=== PATIENT | male | born 1940 | race Asian ===

== ENCOUNTER 2016-07-06 22:30 | Emergency (ER) | payer OTHER ==
[~2016-07-06] VITALS: Wt 73.0 kg
[~2016-07-06 22:30] MED LIST: ATOR10TA65 PO; COLE1TAB2 PO; DOCU-144 PO; FLUO40CA PO; GLIP-95 PO; NIFE30TA43 PO; NOVO7030 SC; POLY17PO6 PO; TRAM50TA2 PO
--- NOTE | 2016-07-07 01:20 | RADRPT ---
PROCEDURE: Portable chest x-ray. CLINICAL INDICATION: Cough. TECHNIQUE: Portable AP view of the chest. COMPARISON: 10/20/2014. FINDINGS: Stable left basilar opacity probably represents epicardial fat or atelectasis. No pulmonary edema o r conolidation is identified. The cardiac silhouette is magnified. No pleural effusion is seen. T here is no pneumothorax. IMPRESSION: 1. No evidence of acute cardiopulmonary disease. RPTAT: HTAR .Francisco Lerner MD, MD Date Time Electronically viewed and signed by .Francisco Lerner MD, MD on 07/07/2016 01:20 .R/
[2016-07-07] MEDS ORDERED: BENZ100C70 PO (01:32)
[2016-07-07] MEDS ORDERED: D-ME473S18 PO (01:33)
--- NOTE | 2016-07-07 01:55 | ERD ---
ER Documentation Chief Complaint Date/Time DATE: 07/07/16 TIME: 01:54 Chief Complaint DRY IRRITATING COUGH SINCE TODAY. NO FEVERS. MILD SORE THROAT. NO EAR PAIN HPI Patient is a 75-year-old male with past medical history of his hypertension, diabetes, hyperlipidemia, SBO presents to the emergency department with a dry cough which started earlier today. Patient has been taking Delsym for symptoms which does temporarily relieve his cough however it continues. Patient states over the last week there has been construction in his house. Patient denies any chest pain, shortness of breath, diaphoresis, arm pain, jaw pain or loss of consciousness. Patient denies any fevers, chills, nausea, vomiting, abdominal pain, ear pain, rhinorrhea. Patient states he does have some mild throat irritation however he denies any trismus, drooling, hyperextension of his neck. Patient denies any sick contacts. No recent travel. ROS All systems reviewed and are negative except as per history of present illness. Medications Home Meds Active Scripts Dextromethorphan Hb-Promethazine Hcl (Promethazine DM Syrup) 473 Ml Syrup, 5 ML PO Q6H Y for COUGH, #4 OZ Prov:JESUSITA WILLIS PA-C 07/07/16 Benzonatate* (Tessalon Perle*) 100 Mg Capsule, 100 MG PO Q8H Y for COUGH, #30 CAP Prov:JESUSITA WILLIS PA-C 07/07/16 Polyethylene Glycol* (Miralax*) 17 Gm Powd.pack, 17 GM PO DAILY Y for CONSTIPATION, #30 PACKET Prov:DIVYA SPAULDING MD 01/25/16 Docusate Sodium* (Colace*) 100 Mg Capsule, 100 MG PO BID, #60 CAP Prov:DIVYA SPAULDING MD 01/25/16 Reported Medications Glipizide* (Glipizide*) 10 Mg Tablet, 10 MG PO DAILY, TAB 01/24/16 Colestipol HCl (Colestipol HCl) 1 Gm Tablet, 1 GM PO, TAB 01/24/16 Insulin Isophan/Regular (Humulin 70/30) 100 Units/Ml Susp, 10 UNIT SC AC BREAKFAST BEDTIME, EA 01/24/16 Atorvastatin Calcium (Atorvastatin Calcium) 10 Mg Tablet, 10 MG PO QHS, #30 TAB 10/25/15 Tramadol HCl (Tramadol HCl) 50 Mg Tab, 50 MG PO Q6H Y for PAIN, TAB 10/20/14 Nifedipine* (Adalat CC*) 30 Mg Tablet.sa, 30 MG PO DAILY, TAB.SA 10/20/14 Fluoxetine Hcl* (Fluoxetine Hcl*) 40 Mg Capsule, 40 MG PO DAILY, CAP 10/20/14 Allergies Allergies: Coded Allergies: Sulfa (Sulfonamide Antibiotics) (Unverified Allergy, Mild, 01/24/16) Uncoded Allergies: SULFA (Allergy, Mild, RASH, 10/25/15) PMhx/Soc History of Surgery: Yes (PROSTECTOMY) Anesthesia Reaction: No Hx Neurological Disorder: No Hx Respiratory Disorders: No Hx Cardiac Disorders: Yes (HTN, DM, CHOLESTEROL) Hx Psychiatric Problems: No Hx Miscellaneous Medical Probl: Yes (prostate ca, sbo) Hx Alcohol Use: No Hx Substance Use: No Hx Tobacco Use: No Smoking Status: Never smoker Physical Exam Vitals Vital Signs Date Time Temp Pulse Resp B/P Pulse Ox O2 Delivery O2 Flow Rate FiO2 07/06/16 22:37 98.8 75 21 131/67 98 Physical Exam GENERAL: Well-developed, well-nourished male. Appears in no acute distress. Speaking in full sentences HEAD: Normocephalic, atraumatic. No deformities or ecchymosis. EYE: Pupils equal, round, and reactive to light. EOMs intact. No conjunctival erythema. No eye discharge. ENT: External ear without any masses or tenderness. Auditory canals clear bilaterally. TM visualized bilaterally, non-erythematous, non-bulging. Nasal mucosa pink with no discharge. Oropharynx is pink without any tonsillar swelling , erythema or exudates. No uvula deviation. No kissing tonsils. NECK: Supple. No meningismus. Normal ROM of the neck. No hyperextension of the neck. LUNG: Clear to auscultation bilaterally. No rhonchi, wheezing, rales or coarse breath sounds. HEART: Regular rate and rhythm. No murmurs, rubs or gallops. BACK: No midline tenderness. EXTREMITES: Equal pulses bilaterally. No peripheral clubbing, cyanosis or edema. No unilateral leg swelling. NEUROLOGIC: Alert and oriented to person, place and time. Moving all four extremities. 5/5 strength in all extremities. Normal speech. Steady gait. SKIN: Normal color. Warm and dry. No rashes or lesions. Procedures/MDM ED COURSE: The patient was stable throughout ED course. I kept the patient and/or family informed of laboratory and diagnostic imaging results throughout the ED course. DIAGNOSTIC IMAGING: Read by radiologist. DIAGNOSTIC IMAGING REPORT Patient: TIRSO PANDYA : 1940 Age: 75 Sex: M MR #: [id number] DOS: 07/07/16 0030 Ordering MD: JESUSITA WILLIS PA-C Location: E Room/Bed: PROCEDURE: Portable chest x-ray. CLINICAL INDICATION: Cough. TECHNIQUE: Portable AP view of the chest. COMPARISON: 10/20/2014. FINDINGS: Stable left basilar opacity probably represents epicardial fat or atelectasis. No pulmonary edema or conolidation is identified. The cardiac silhouette is magnified. No pleural effusion is seen. There is no pneumothorax. IMPRESSION: 1. No evidence of acute cardiopulmonary disease. RPTAT: HTAR .Francisco Lerner MD, MD Date Time Electronically viewed and signed by .Francisco Lerner MD, MD on 07/07/2016 01:20 .R/ CC: JESUSITA WLILIS PA-C MEDICAL DECISION MAKING: This is a 75-year-old male who presents to the emergency department with a dry cough which started earlier today. Patient states they are doing construction his house. Patient states that he also has some mild throat irritation. Vital signs were reviewed. Patient was afebrile. Patient was not hypoxic. ENT exam was normal. Lung exam was normal. Chest x-ray was unremarkable. Given these findings, the patient's presentation is most consistent with viral URI. I have a much lower clinical concern for bacterial infections including pneumonia, meningitis, sinusitis, otitis externa, acute otitis media, strep pharyngitis, epiglottitis or peritonsillar abscess. PRESCRIPTIONS: Promethazine cough syrup, Tessalon Perles DISCHARGE: At this time, patient is stable for discharge and outpatient management. Supportive therapies such as OTC throat lozenges, salt water gurgles, popsicles and jello discussed. I have instructed the patient to follow-up with his/her primary care physician in 1-2 days. I have instructed the patient to promptly return to the ER for any new or worsening symptoms including increased pain, swelling, fever, nausea, vomiting, weakness or difficulty breathing. The patient and/or family expressed understanding of and agreement with this plan. All questions were answered. Home care instructions were provided. Departure Diagnosis: Primary Impression: Viral URI Condition: Stable Patient Instructions: Uri, Viral, No Abx (Adult) Additional Instructions: Call your primary care doctor TOMORROW for an appointment during the next 1-2 days.See the doctor sooner or return here if your condition worsens before your appointment time. JESUSITA WILLIS PA-C Jul 07, 2016 01:55
== END 2016-07-07 04:49 | disposition home or self-care (01) ==
LOC: FTE 22:30
DX: J06.9 Acute upper respiratory infection, unspecified (principal); I10 Essential (primary) hypertension; E11.9 Type 2 diabetes mellitus without complications; Z79.4 Long term (current) use of insulin; Z79.84 Long term (current) use of oral hypoglycemic drugs; Z85.46 Personal history of malignant neoplasm of prostate
CPT/HCPCS: 71010

== ENCOUNTER 2017-01-28 04:11 | Inpatient (IN) | payer OTHER ==
[~2017-01-28] VITALS: Ht 167.6 cm; Wt 75.0 kg
[~2017-01-28 04:11] MED LIST changes: +BENZ100C70 PO; +D-ME473S18 PO
[2017-01-28] MEDS ORDERED: ONDANSETRON 4 MG INJ IV STA (04:20)
[2017-01-28] MEDS ORDERED: morphine 4 MG/ML VIAL IV STA (04:20)
[2017-01-28] MEDS ORDERED: FAMOTIDINE 20 MG INJ IV STA (04:20)
[2017-01-28] MEDS ORDERED: SOD CHLORIDE 0.9% 1,000 ML IV STA (04:20)
[2017-01-28 04:39] LABS: BASOPHIL # 0.1 10^3/ul (0.0-0.1); BASOPHILS % 0.3 % (0.0-2.0); EOSINOPHILS # 0.1 10^3/ul (0.0-0.5); EOSINOPHILS % 0.8 % (0.0-7.0); HEMATOCRIT 38.9 % (42.0-52.0); HEMOGLOBIN 13.6 g/dl (14.0-18.0); LYMPHOCYTES # 4.3 10^3/ul (0.8-2.9); LYMPHOCYTES % 25.1 % (15.0-51.0); MEAN CORPUSCULAR HEMOGLOBIN 29.6 pg (29.0-33.0); MEAN CORPUSCULAR VOLUME 84.6 fl (82.0-101.0); MEAN PLATELET VOLUME 10.3 fl (7.4-10.4); MONOCYTE # 0.8 10^3/ul (0.3-0.9); MONOCYTES % 4.7 % (0.0-11.0); NEUTROPHIL # 11.9 10^3/ul (1.6-7.5); NEUTROPHILS % 68.8 % (39.0-77.0); PLATELET COUNT 190 10^3/UL (140-415); RED CELL DISTRIBUTION WIDTH 13.2 % (11.5-14.5); WHITE BLOOD COUNT 17.3 10^3/ul (4.8-10.8)
[2017-01-28 04:56] LABS: ALBUMIN 4.7 g/dl (3.3-4.9); ALBUMIN/GLOBULIN RATIO 1.34; BILIRUBIN,INDIRECT 0.6 mg/dl (0-1.1); BILIRUBIN,TOTAL 0.6 mg/dl (0.2-1.3); CREATININE 1.24 mg/dl (0.61-1.24); POTASSIUM 4.3 mmol/L (3.5-5.1); TOTAL PROTEIN 8.2 g/dl (6.1-8.1)
[2017-01-28] MEDS ORDERED: morphine 10 MG INJ IV ONE (05:00)
--- NOTE | 2017-01-28 05:15 | RADRPT ---
PROCEDURE: CT ABDOMEN/PELVIS WITHOUT CONTRAST CLINICAL INDICATION: 76-year-old male with abdominal pain. TECHNIQUE: The study was performed utilizing a [employer] VCT 64-slice CT scanner. Direct axia l sections were obtained through the abdomen and pelvis without the use of intravenous contrast mate rial. Sagittal and coronal reformations were obtained. One or more of the following dose reduction t echniques were utilized: automated exposure control, adjustment of the mA and/or kV according to pat ient's size and/or the use of iterative reconstruction technique. The images were reviewed on a PAC S workstation. CTD/vol = 13.6 mGy; Total Exam DLP = 820.1 mGy-cm. COMPARISON: CT abdomen/pelvis January 24, 2016. FINDINGS: There is trace bibasilar subsegmental atelectasis. There is no evidence for significant pleural eff usion. The liver has a normal size and contour without focal areas of abnormal density. No intrahep atic nor extrahepatic biliary ductal dilatation is seen. The gallbladder contains multiple calcified dependent gallstones extending to the neck region. In addition, there is diffuse scattered peripher al gallbladder wall calcifications. There is no significant pericholecystic fluid. The pancreas is w ithout areas of abnormal attenuation. The spleen is identified and has a normal size without abnorm al density. The adrenal glands are unremarkable. The kidneys are without abnormal density. No hydrou reteronephrosis nor nephroureterolithiasis is evident. The urinary bladder contains urine. There is a small hiatal hernia present. There are persistently moderately dilated loops of small bowel with t ransition point within the lower mid abdomen consistent with a small bowel obstruction. This is similar to the patient's prior examination. Fecalization is noted within the small bowel in the righ t upper quadrant. The appendix is visualized and is without abnormal thickening or surrounding infla mmatory reaction. Again noted are multiple clips within the pelvic region from prior cystectomy. The re is a neobladder again identified. There are small diverticula within the sigmoid colon without muhammad rrounding inflammatory reaction. The aortoiliac vessels are without aneurysmal dilatation. Prominent degenerative changes are seen within the lower lumbar spine. IMPRESSION: 1. Moderately dilated loops of small bowel with transition point within the mid lower abdomen consi stent with recurrent small bowel obstruction. 2. Status post cystectomy with neobladder. 3. Mild sigmoid diverticulosis. 4. No CT evidence for appendicitis. 5. Small hiatal hernia. 6. Cholelithiasis with gallbladder wall calcifications. 7. Degenerative changes within the spine. .Emiliano Tapia MD, Date Time Electronically viewed and signed by .Emiliano Tapia MD, on 01/28/2017 05:15 .M/
[2017-01-28] MEDS ORDERED: SOD CHLORIDE 0.9% 1,000 ML IV SCH (05:39)
--- NOTE | 2017-01-28 05:43 | ERA ---
ER Documentation Chief Complaint Date/Time DATE: 01/28/17 TIME: 05:40 Chief Complaint ap tonight. +distension. hx bowel obstruction. +vomiting. HPI This is a 76-year-old male who presents to the emergency room for evaluation of abdominal pain, nausea and vomiting. The patient does state that he has had this in the past and was diagnosed with small bowel obstruction. The patient states that he has had surgery on his bladder previously. He states that his bowel obstruction has resolved with "the tube". The patient localizes the pain to the total portion of his abdomen and describes as an achy pain. The patient denies any fevers or chills or diarrhea associated with this. He came to the ER today for evaluation. ROS All systems reviewed and are negative except as per history of present illness. Medications Home Meds Active Scripts Dextromethorphan Hb-Promethazine Hcl (Promethazine DM Syrup) 473 Ml Syrup, 5 ML PO Q6H Y for COUGH, #4 OZ Prov:JESUSITA WILLIS PA-C 07/07/16 Benzonatate* (Tessalon Perle*) 100 Mg Capsule, 100 MG PO Q8H Y for COUGH, #30 CAP Prov:JESUSITA WILLIS PA-C 07/07/16 Polyethylene Glycol* (Miralax*) 17 Gm Powd.pack, 17 GM PO DAILY Y for CONSTIPATION, #30 PACKET Prov:DIVYA SPAULDING MD 01/25/16 Docusate Sodium* (Colace*) 100 Mg Capsule, 100 MG PO BID, #60 CAP Prov:DIVYA SPAULDING MD 01/25/16 Reported Medications Glipizide* (Glipizide*) 10 Mg Tablet, 10 MG PO DAILY, TAB 01/24/16 Colestipol HCl (Colestipol HCl) 1 Gm Tablet, 1 GM PO, TAB 01/24/16 Insulin Isophan/Regular (Humulin 70/30) 100 Units/Ml Susp, 10 UNIT SC AC BREAKFAST BEDTIME, EA 01/24/16 Atorvastatin Calcium (Atorvastatin Calcium) 10 Mg Tablet, 10 MG PO QHS, #30 TAB 10/25/15 Tramadol HCl (Tramadol HCl) 50 Mg Tab, 50 MG PO Q6H Y for PAIN, TAB 10/20/14 Nifedipine* (Adalat CC*) 30 Mg Tablet.sa, 30 MG PO DAILY, TAB.SA 10/20/14 Fluoxetine Hcl* (Fluoxetine Hcl*) 40 Mg Capsule, 40 MG PO DAILY, CAP 10/20/14 Allergies Allergies: Coded Allergies: Sulfa (Sulfonamide Antibiotics) (Unverified Allergy, Mild, 01/28/17) PMhx/Soc History of Surgery: Yes (prostate surgery with bladder resection) Anesthesia Reaction: No Hx Neurological Disorder: No Hx Respiratory Disorders: No Hx Psychiatric Problems: No Hx Miscellaneous Medical Probl: Yes (Prostate CA, DM) Hx Alcohol Use: No Hx Substance Use: No Hx Tobacco Use: No Smoking Status: Never smoker Physical Exam Vitals Vital Signs Date Time Temp Pulse Resp B/P Pulse Ox O2 Delivery O2 Flow Rate FiO2 01/28/17 04:14 97.4 56 26 137/63 98 Physical Exam INITIAL VITAL SIGNS: Reviewed by me GENERAL: The patient is well developed, moderate distress actively vomiting HEENT: Pupils equal, round, and reactive to light. EOMI. There is no scleral icterus. NECK: C-spine is soft and supple, there is no meningismus. There is no cervical lymphadenopathy. LUNGS: Clear to auscultation bilaterally. There are no rales, wheezes or rhonchi. HEART: Regular rate and rhythm, no murmurs, clicks, rubs or gallops. ABDOMEN: His abdomen with hyperactive bowel sounds auscultated in the left and right upper quadrant, positive guarding and rebound tenderness EXTREMITIES: There is no peripheral cyanosis or edema. No focal swelling or erythema. NEUROLOGICAL: The patient moves all four extremities with 5/5 strength. Cranial nerves II - XII are intact. Normal gait. Alert and oriented SKIN: There is no apparent rash or petechiae. HEME/LYMPHATIC: There is no evidence of excessive bruising or lymphedema. PSYCHIATRIC: The patient does not appear anxious or depressed. Result Diagram: 01/28/1741901/28/17419 Results 24 hrs Laboratory Tests Test 01/28/17 04:20 White Blood Count 17.310^3/ul Red Blood Count 4.6010^6/ul Hemoglobin 13.6g/dl Hematocrit 38.9% Mean Corpuscular Volume 84.6fl Mean Corpuscular Hemoglobin 29.6pg Mean Corpuscular Hemoglobin Concent 35.0g/dl Red Cell Distribution Width 13.2% Platelet Count 65192^3/UL Mean Platelet Volume 10.3fl Neutrophils % 68.8% Lymphocytes % 25.1% Monocytes % 4.7% Eosinophils % 0.8% Basophils % 0.3% Nucleated Red Blood Cells % 0.0/100WBC Neutrophils # 11.910^3/ul Lymphocytes # 4.310^3/ul Monocytes # 0.810^3/ul Eosinophils # 0.110^3/ul Basophils # 0.110^3/ul Nucleated Red Blood Cells # 0.010^3/ul Sodium Level 141mmol/L Potassium Level 4.3mmol/L Chloride Level 103mmol/L Carbon Dioxide Level 25mmol/L Anion Gap 17 Blood Urea Nitrogen 17mg/dl Creatinine 1.24mg/dl Glucose Level 194mg/dl Calcium Level 10.0mg/dl Total Bilirubin 0.6mg/dl Direct Bilirubin 0.00mg/dl Indirect Bilirubin 0.6mg/dl Aspartate Amino Transf (AST/SGOT) 32IU/L Alanine Aminotransferase (ALT/SGPT) 48IU/L Alkaline Phosphatase 54IU/L Total Protein 8.2g/dl Albumin 4.7g/dl Globulin 3.50g/dl Albumin/Globulin Ratio 1.34 Lipase 161U/L Current Medications Medications (Trade) Dose Ordered Sig/Daniela Route PRN Reason Start Time Stop Time Status Last Admin Dose Admin Sodium Chloride (NS) 1,000 ml @ 1,000 mls/hr Q1H STAT IV 01/28/17 04:20 01/28/17 05:19 DC 01/28/17 04:33 Morphine Sulfate (morphine) 4 mg ONCE STAT IV 01/28/17 04:20 01/28/17 04:21 DC 01/28/17 04:36 Ondansetron HCl (Zofran Inj) 4 mg ONCE STAT IV 01/28/17 04:20 01/28/17 04:21 DC 01/28/17 04:36 Famotidine (Pepcid Iv) 20 mg ONCE STAT IV 01/28/17 04:20 01/28/17 04:21 DC 01/28/17 04:33 Morphine Sulfate 6 mg 6 mg ONCE ONCE IV 01/28/17 05:00 01/28/17 05:01 DC 01/28/17 04:53 Sodium Chloride (NS) 1,000 ml @ 80 mls/hr [id number] IV 01/28/17 05:39 01/28/17 18:08 Ondansetron HCl (Zofran Inj) 4 mg BRIDGE ORDER PRN IV NAUSEA AND/OR VOMITING 01/28/17 06:00 01/29/17 05:59 Acetaminophen (Tylenol Tab) 650 mg ER BRIDGE PRN PO MILD PAIN/FEVER 01/28/17 06:00 01/29/17 05:59 Procedures/MDM CT abdomen pelvis without:: 1. Moderately dilated loops of small bowel with transition point within the mid lower abdomen consistent with recurrent small bowel obstruction. 2. Status post cystectomy with neobladder. 3. Mild sigmoid diverticulosis. 4. No CT evidence for appendicitis. 5. Small hiatal hernia. 6. Cholelithiasis with gallbladder wall calcifications. 7. Degenerative changes within the spine. This 76-year-old male presents to the ER for evaluation of abdominal pain. When I evaluated this patient he was in a moderate amount of distress and did have peritoneal signs. The patient was slightly distended with hyperactive bowel sounds. The patient was given morphine and Zofran with some mild relief of his pain. The patient was given a second dose of morphine and a CAT scan was obtained which does confirm my suspicion of reoccurring small bowel obstruction. Nasogastric tube was placed in this patient tolerated nasogastric tube placement well. The patient's pain has decreased significantly since placement of the NG tube. The patient was seen last year for the same by Dr. Cortez, and I have contacted him however he is deferred consultation to our panel physician. I have contacted her panel surgeon Dr. Salcedo and he is in agreement to evaluate this patient. The patient will be admitted to our panel physician Dr. antonio Critical Care: Excluding all billable procedures Time: 33 minutes Treatments/Evaluations: Close monitoring and treatment of unstable vital signs, cardiorespiratory, and neurologic status, while maintaining tight balance of fluid, respiratory, and cardiac interventions. Departure Diagnosis: Primary Impression: Small bowel obstruction Additional Impressions: Abdominal pain Nausea and vomiting Condition: FINA Olson DO Jan 28, 2017 05:43
[2017-01-28] MEDS ORDERED: ONDANSETRON 4 MG INJ IV PRN ×2 (06:00→06:30)
[2017-01-28] MEDS ORDERED: ACETAMINOPHEN 325 MG TAB PO PRN (06:00)
[2017-01-28] MEDS ORDERED: INSU100I27 SQ (06:04)
[2017-01-28] MEDS ORDERED: ALBUTEROL/IPRATROPIUM (NEB) 3 ML AMP HHN PRN (06:30)
[2017-01-28] MEDS ORDERED: GLUCOSE GEL 15 GRAM TUBE PO PRN ×2 (06:30)
[2017-01-28] MEDS ORDERED: DEXTROSE 50% 50 ML SYRINGE IV PRN ×2 (06:30)
[2017-01-28] MEDS ORDERED: GLUCOSE GEL 15 GRAM TUBE BUCCAL PRN (06:30)
[2017-01-28] MEDS ORDERED: GLUCAGON 1 MG INJ IM PRN (06:30)
[2017-01-28] MEDS ORDERED: NACL 0.9% 3 ML SYG IV SCH (06:30)
[2017-01-28] MEDS ORDERED: morphine 4 MG/ML VIAL IV PRN (06:30)
[2017-01-28] MEDS ORDERED: HYDROmorphONE 1 MG/ML SYG IV STA (06:55)
[2017-01-28] MEDS: INSULIN ASPART [NOVOLOG] 3 ML PEN SC SCH ×4 (08:00→21:15)
[2017-01-28 08:03] LABS: ADD UMIC YES; UR ASCORBIC ACID NEGATIVE (NEGATIVE); UR BILIRUBIN (Dip) NEGATIVE (NEGATIVE); UR BLOOD (Dip) 1+ mg/dL (NEGATIVE); UR CLARITY CLEAR (CLEAR); UR COLOR YELLOW (YELLOW); UR GLUCOSE (Dip) NEGATIVE (NEGATIVE); UR KETONES (Dip) NEGATIVE (NEGATIVE); UR LEUKOCYTE ESTERASE (Dip) NEGATIVE Leu/ul (NEGATIVE); UR NITRITE (Dip) NEGATIVE (NEGATIVE); UR NONSQUAMOUS EPITHELIAL CELL 2 /HPF (NONE SEEN); UR RBC 13 /HPF (0-5); UR TOTAL PROTEIN (Dip) NEGATIVE (NEGATIVE); UR UROBILINOGEN (Dip) NEGATIVE (NEGATIVE)
--- NOTE | 2017-01-28 08:03 | HP ---
Date/Time of Note Date/Time of Note DATE: 01/28/17 TIME: 07:58 Assessment/Plan VTE Prophylaxis VTE Prophylaxis Intervention: SCD's Assessment/Plan Assessment/Plan ASSESSMENT This is a 76-year-old male with history of hypertension, prostate cancer status post prostatectomy and bladder surgery, dyslipidemia, type 2 diabetes presents with abdominal pain/distention and vomiting secondary to recurrent small bowel obstruction PLAN N.p.o. with IV fluid NG tube to low intermittent suction Pain management IV antibiotic Ordered small bowel follow-through Awaiting surgical evaluation Insulin for management of his diabetes As needed antihypertensives while n.p.o. HPI/ROS Admit Date/Time Admit Date/Time Hx of Present Illness This is a 76-year-old male with a history of hypertension, prostate cancer status post prostatectomy and bladder surgery, dyslipidemia, type 2 diabetes, small bowel obstruction. Patient presented to the ER complaining of abdominal pain, distention, nausea and nonbilious nonbloody emesis. He also c/o diarrhea, having BM 3 or 4 times a day x many years. He said he was told it is side effect of radiation he received for prostate cancer. Last BM yesterday. He has been able to pass gas. When he presented to the ER CT/abdomen pelvis shows Moderately dilated loops of small bowel with transition point within the mid lower abdomen consistent with recurrent small bowel obstruction, and gallstones with gallbladder wall calcification. An NG tube has been placed to low intermittent suction. Labs shows a WBC of 17,000 otherwise rest of his vitals are within acceptable range. PMH/Family/Social Social History Smoking Status: Never smoker Exam/Review of Systems Vital Signs Vitals Vital Signs Date Time Temp Pulse Resp B/P Pulse Ox O2 Delivery O2 Flow Rate FiO2 01/28/17 06:01 61 18 146/80 99 Room Air 01/28/17 04:14 97.4 Exam Constitutional: alert, oriented, well developed Head: atraumatic, normocephalic Eyes: EOMI, PERRL Respiratory: clear to auscultation, normal air movement Cardiovascular: nl pulses, regular rate and rhythm Gastrointestinal: distended, soft, tender Extremities: normal pulses Labs Result Diagram: 01/28/1741901/28/17419 Medications Medications Current Medications Sodium Chloride 1,000 ml @ 80 mls/hr [id number] IV ; Start 01/28/17 at 05:39; Stop 01/28/17 at 18:08 Dextrose/Sodium Chloride (D5-1/2ns) 1,000 ml @ 120 mls/hr Q8H20M IV ; Start at 06:02 Ondansetron HCl (Zofran Inj) 4 mg Q6H PRN IV NAUSEA AND/OR VOMITING; Start 04/04 at 06:30 Morphine Sulfate (morphine) 4 mg Q4H PRN IV SEVERE PAIN LEVEL 7-10; Start 04/04 at 06:30 Famotidine (Pepcid Iv) 20 mg Q12 IV ; Start 01/28/17 at 09:00 Diagnostic Test (Pha) (Accu-Chek) 1 ea 02 XX ; Start 01/29/17 at 02:00 Insulin Glargine 15 unit 15 unit QHS SC ; Start 01/28/17 at 21:00 Ampicillin Sodium/ Sulbactam Sodium (Unasyn 3gm/NS (Pmx)) 100 ml @ 100 mls/hr Q8H IVPB ; Start 01/28/17 at 06:30 Miscellaneous Information 1 ea NOTE XX ; Start 01/28/17 at 06:30 Glucose (Glutose) 15 gm Q15M PRN PO DECREASED GLUCOSE; Start 01/28/17 at 06:30 Glucose (Glutose) 22.5 gm Q15M PRN PO DECREASED GLUCOSE; Start 01/28/17 at 06: 30 Dextrose (D50w Syringe) 25 ml Q15M PRN IV DECREASED GLUCOSE; Start 01/28/17 at 06:30 Dextrose (D50w Syringe) 50 ml Q15M PRN IV DECREASED GLUCOSE; Start 01/28/17 at 06:30 Glucagon (Glucagen) 1 mg Q15M PRN IM DECREASED GLUCOSE; Start 01/28/17 at 06: 30 Glucose (Glutose) 15 gm Q15M PRN BUCCAL DECREASED GLUCOSE; Start 01/28/17 at 06:30 MARILYN SCHMID MD Jan 28, 2017 08:02
[2017-01-28] MEDS: AMPICILLIN/SULB 3 GM/NS (PMX) 100 ML IVPB SCH ×3 (08:07→22:52)
[2017-01-28] MEDS: DEXTROSE 5%-0.45% NACL 1,000 ML IV SCH ×3 (08:07→22:42)
[2017-01-28] MEDS: FAMOTIDINE 20 MG INJ IV SCH ×2 (09:00→21:12)
[2017-01-28] MEDS ORDERED: DIATR MEGLU/DIATRIZOATE SODIUM 120 ML BTL ONE (09:06)
[2017-01-28 12:00] VITALS: BP 118/60; PULSE 78; RESP 16
[2017-01-28 12:08] VITALS: PULSE 70; TEMP 98.2
[2017-01-28 12:52] VITALS: Ht 167.6 cm; Wt 75.0 kg
[2017-01-28] MEDS ORDERED: INFLUENZA VIRUS VACCINE 0.5 ML (DISPENSING) IM* ONE (15:00)
[2017-01-28 16:06] VITALS: BP 134/65; RESP 16
[2017-01-28 17:00] VITALS: BP 121/59; RESP 19
[2017-01-28 20:17] VITALS: BP 113/64; RESP 22
--- NOTE | 2017-01-28 20:30 | RADRPT ---
PROCEDURE: Small bowel follow-through. CLINICAL INDICATION: Abdomen pain. TECHNIQUE: Water-soluble contrast was administered via the nasogastric tube and several spot and o verhead radiographs of the abdomen were obtained. COMPARISON: None. FINDINGS: On the preliminary radiograph, the nasogastric tube is present with the tip in the stomach. Multiple surgical clips are present in the lower abdomen and pelvis. There is no small bowel displacement or mass. The small bowel folds are normal. There is no evidence of obstruction. Transit time is delayed with delayed gastric emptying. The final image at 8 hours demonstrates very dilute contrast in the small bowel. IMPRESSION: 1. Nasogastric tube tip in the stomach. 2. Prior lower abdomen and pelvis surgery. 3. Delayed gastric emptying. 4. Very dilute contrast in the small bowel resulting in an indeterminate study. RPTAT: QQ .Doni Amin MD, MD Date Time Electronically viewed and signed by .Doni Amin MD, on 01/28/2017 20:29 .R/
--- NOTE | 2017-01-28 20:34 | CONS ---
Date/Time of Note Date/Time of Note DATE: 01/28/17 TIME: 20:31 Assessment/Plan Assessment/Plan Additional Assessment/Plan Recurrent small bowel obstruction N.p.o., IV fluids, NG tube Very high output from NG tube today. Hopefully will resolve with conservative therapy. However if worsens or persists, may require exploration. This would be a very difficult surgery due to his prostatectomy and bladder reconstruction with neobladder Consultation Date/Type/Reason Admit Date/Time Date of Consultation: Jan 28, 2017 Reason for Consultation Aminal pain and nausea. Hx of Present Illness The patient is a 76-year-old male status post a prostatectomy and bladder repair he has had multiple bowel obstructions in the past. He states he has had one a year for the last 3 years. He developed nausea and emesis yesterday and crampy abdominal pain presented to the ER here. The patient is a 76-year-old male status post a prostatectomy and bladder repair at the same time who developed nausea and emesis and crampy abdominal pain yesterday. He presented to the ER. He has had bowel obstructions in the past. He states that yearly for the last 2 years. These have all resolved without surgery. Workup in ER is consistent with a bowel obstruction was called for consultation. Past Medical History Medical History: diabetes Past Surgical History Past Surgical Hx: other (Prostatectomy and bladder repair) Family History Significant Family History: no pertinent family hx Social History Alcohol Use: none Smoking Status: Never smoker Drug Use: none Exam/Review of Systems Vital Signs Vitals Vital Signs Date Time Temp Pulse Resp B/P Pulse Ox O2 Delivery O2 Flow Rate FiO2 01/28/17 20:17 98.3 63 22 113/64 100 01/28/17 16:06 Room Air Exam Constitutional: alert, oriented, well developed Head: normocephalic Eyes: nl conjunctiva ENMT: nl external ears & nose Neck: supple Respiratory: clear to auscultation Cardiovascular: regular rate and rhythm Gastrointestinal: other (Mildly distended, nontender), soft Musculoskeletal: nl extremities to inspection Extremities: normal pulses Neurological: STUDENT DEVELOPMENT DEAN II-XII intact Skin: nl turgor Results Result Diagram: 01/28/170 01/28/17419 Results 24 hrs Laboratory Tests Test 01/28/17 04:20 01/28/17 07:37 01/28/17 09:07 01/28/17 13:27 White Blood Count 17.3 #H Red Blood Count 4.60 L Hemoglobin 13.6 L Hematocrit 38.9 L Mean Corpuscular Volume 84.6 Mean Corpuscular Hemoglobin 29.6 Mean Corpuscular Hemoglobin Concent 35.0 Red Cell Distribution Width 13.2 Platelet Count 190 Mean Platelet Volume 10.3 # Neutrophils % 68.8 Lymphocytes % 25.1 Monocytes % 4.7 Eosinophils % 0.8 Basophils % 0.3 Nucleated Red Blood Cells % 0.0 Neutrophils # 11.9 H Lymphocytes # 4.3 H Monocytes # 0.8 Eosinophils # 0.1 Basophils # 0.1 Nucleated Red Blood Cells # 0.0 Sodium Level 141 Potassium Level 4.3 Chloride Level 103 Carbon Dioxide Level 25 Anion Gap 17 H Blood Urea Nitrogen 17 Creatinine 1.24 Glucose Level 194 Calcium Level 10.0 Total Bilirubin 0.6 Direct Bilirubin 0.00 Indirect Bilirubin 0.6 Aspartate Amino Transf (AST/SGOT) 32 Alanine Aminotransferase (ALT/SGPT) 48 Alkaline Phosphatase 54 Total Protein 8.2 H Albumin 4.7 Globulin 3.50 H Albumin/Globulin Ratio 1.34 Lipase 161 Urine Color YELLOW Urine Clarity CLEAR Urine pH 7.0 Urine Specific [place] 1.010 Urine Ketones NEGATIVE Urine Nitrite NEGATIVE Urine Bilirubin NEGATIVE Urine Urobilinogen NEGATIVE Urine Leukocyte Esterase NEGATIVE Urine Microscopic RBC 13 H Urine Microscopic WBC 43 H Urine Hemoglobin 1+ H Urine Glucose NEGATIVE Urine Total Protein NEGATIVE Bedside Glucose 165 172 Test 01/28/17 17:49 Bedside Glucose 126 Imaging Free Text/Dictation PROCEDURE: CT ABDOMEN/PELVIS WITHOUT CONTRAST CLINICAL INDICATION: 76-year-old male with abdominal pain. TECHNIQUE: The study was performed utilizing a [employer] VCT 64-slice CT scanner. Direct axial sections were obtained through the abdomen and pelvis without the use of intravenous contrast material. Sagittal and coronal reformations were obtained. One or more of the following dose reduction techniques were utilized: automated exposure control, adjustment of the mA and/ or kV according to patient's size and/or the use of iterative reconstruction technique. The images were reviewed on a PACS workstation. CTD/vol = 13.6 mGy ; Total Exam DLP = 820.1 mGy-cm. COMPARISON: CT abdomen/pelvis January 24, 2016. FINDINGS: There is trace bibasilar subsegmental atelectasis. There is no evidence for significant pleural effusion. The liver has a normal size and contour without focal areas of abnormal density. No intrahepatic nor extrahepatic biliary ductal dilatation is seen. The gallbladder contains multiple calcified dependent gallstones extending to the neck region. In addition, there is diffuse scattered peripheral gallbladder wall calcifications. There is no significant pericholecystic fluid. The pancreas is without areas of abnormal attenuation. The spleen is identified and has a normal size without abnormal density. The adrenal glands are unremarkable. The kidneys are without abnormal density. No hydroureteronephrosis nor nephroureterolithiasis is evident. The urinary bladder contains urine. There is a small hiatal hernia present. There are persistently moderately dilated loops of small bowel with transition point within the lower mid abdomen consistent with a small bowel obstruction. This is similar to the patient's prior examination. Fecalization is noted within the small bowel in the right upper quadrant. The appendix is visualized and is without abnormal thickening or surrounding inflammatory reaction. Again noted are multiple clips within the pelvic region from prior cystectomy. There is a neobladder again identified. There are small diverticula within the sigmoid colon without surrounding inflammatory reaction. The aortoiliac vessels are without aneurysmal dilatation. Prominent degenerative changes are seen within the lower lumbar spine. IMPRESSION: 1. Moderately dilated loops of small bowel with transition point within the mid lower abdomen consistent with recurrent small bowel obstruction. 2. Status post cystectomy with neobladder. 3. Mild sigmoid diverticulosis. 4. No CT evidence for appendicitis. 5. Small hiatal hernia. 6. Cholelithiasis with gallbladder wall calcifications. 7. Degenerative changes within the spine. Medications Medications Current Medications Dextrose/Sodium Chloride (D5-1/2ns) 1,000 ml @ 120 mls/hr Q8H20M IV Last administered on 01/28/17 15:36; Admin Dose 120 MLS/HR; Start 01/28/17 at 06: 02 Ondansetron HCl (Zofran Inj) 4 mg Q6H PRN IV NAUSEA AND/OR VOMITING Last administered on 01/28/17 15:35; Admin Dose 4 MG; Start 01/28/17 at 06:30 Morphine Sulfate (morphine) 4 mg Q4H PRN IV SEVERE PAIN LEVEL 7-10 Last administered on 01/28/17 17:55; Admin Dose 4 MG; Start 01/28/17 at 06:30 Famotidine (Pepcid Iv) 20 mg Q12 IV ; Start 01/28/17 at 09:00 Diagnostic Test (Pha) (Accu-Chek) 1 ea 02 XX ; Start 01/29/17 at 02:00 Insulin Glargine 15 unit 15 unit QHS SC ; Start 01/28/17 at 21:00 Ampicillin Sodium/ Sulbactam Sodium (Unasyn 3gm/NS (Pmx)) 100 ml @ 100 mls/hr Q8H IVPB Last administered on 01/28/17t 16:36; Admin Dose 100 MLS/HR; Start 01/28/17 at 06:30 Miscellaneous Information 1 ea NOTE XX ; Start 01/28/17 at 06:30 Glucose (Glutose) 15 gm Q15M PRN PO DECREASED GLUCOSE; Start 01/28/17 at 06:30 Glucose (Glutose) 22.5 gm Q15M PRN PO DECREASED GLUCOSE; Start 01/28/17 at 06: 30 Dextrose (D50w Syringe) 25 ml Q15M PRN IV DECREASED GLUCOSE; Start 01/28/17 at 06:30 Dextrose (D50w Syringe) 50 ml Q15M PRN IV DECREASED GLUCOSE; Start 01/28/17 at 06:30 Glucagon (Glucagen) 1 mg Q15M PRN IM DECREASED GLUCOSE; Start 01/28/17 at 06: 30 Glucose (Glutose) 15 gm Q15M PRN BUCCAL DECREASED GLUCOSE; Start 01/28/17 at 06:30 Insulin Aspart (Novolog Insulin Pen) NOVOLOG *MODERATE* ALGORI... Q4 SC ; Start 01/28/17 at 21:00 CRYSTAL RIDDLE MD Jan 28, 2017 20:34
[2017-01-28] MEDS: INSULIN GLARGINE [LANtus] 3 ML PEN SC SCH (21:16)
[2017-01-29] MEDS: INSULIN ASPART [NOVOLOG] 3 ML PEN SC SCH ×6 (01:00→21:30)
[2017-01-29 02:00] VITALS: BP 111/59; RESP 20
[2017-01-29] MEDS: ACCU-CHEK XX SCH (02:00)
[2017-01-29] MEDS: DEXTROSE 5%-0.45% NACL 1,000 ML IV SCH ×3 (03:38→23:42)
[2017-01-29 05:13] LABS: BASOPHILS % 0.2 % (0.0-2.0); EOSINOPHILS # 0.1 10^3/ul (0.0-0.5); EOSINOPHILS % 1.5 % (0.0-7.0); HEMATOCRIT 35.5 % (42.0-52.0); HEMOGLOBIN 11.6 g/dl (14.0-18.0); LYMPHOCYTES # 2.5 10^3/ul (0.8-2.9); LYMPHOCYTES % 27.3 % (15.0-51.0); MEAN CORPUSCULAR HEMOGLOBIN 28.9 pg (29.0-33.0); MEAN CORPUSCULAR HGB CONC 32.7 g/dl (32.0-37.0); MEAN CORPUSCULAR VOLUME 88.5 fl (82.0-101.0); MEAN PLATELET VOLUME 10.7 fl (7.4-10.4); MONOCYTE # 0.8 10^3/ul (0.3-0.9); MONOCYTES % 8.4 % (0.0-11.0); NEUTROPHIL # 5.8 10^3/ul (1.6-7.5); NEUTROPHILS % 62.3 % (39.0-77.0); PLATELET COUNT 146 10^3/UL (140-415); RED BLOOD COUNT 4.01 10^6/ul (4.70-6.10); RED CELL DISTRIBUTION WIDTH 13.8 % (11.5-14.5); WHITE BLOOD COUNT 9.2 10^3/ul (4.8-10.8)
[2017-01-29 05:49] LABS: ALBUMIN 3.4 g/dl (3.3-4.9); ALBUMIN/GLOBULIN RATIO 1.03; BILIRUBIN,INDIRECT 0.6 mg/dl (0-1.1); BILIRUBIN,TOTAL 0.6 mg/dl (0.2-1.3); CALCIUM 8.7 mg/dl (8.4-10.2); CREATININE 1.19 mg/dl (0.61-1.24); PHOSPHORUS 4.1 mg/dl (2.5-4.9); TOTAL PROTEIN 6.7 g/dl (6.1-8.1)
[2017-01-29] MEDS: AMPICILLIN/SULB 3 GM/NS (PMX) 100 ML IVPB SCH ×3 (06:34→22:53)
[2017-01-29] MEDS ORDERED: IOHEXOL 350 100 ML BTL PO ONE (07:00)
[2017-01-29 07:18] VITALS: BP 140/73; RESP 18
[2017-01-29] MEDS: FAMOTIDINE 20 MG INJ IV SCH ×2 (08:39→21:16)
[2017-01-29 14:00] VITALS: BP 132/64; RESP 18
--- NOTE | 2017-01-29 14:29 | PN ---
Date/Time of Note Date/Time of Note DATE: 01/29/17 TIME: 14:23 Assessment/Plan VTE Prophylaxis VTE Prophylaxis Intervention: SCD's Lines/Catheters IV Catheter Type (from Nrsg): Peripheral IV Assessment/Plan Chief Complaint/Hosp Course ASSESSMENT: 1. acute small bowel obstruction,recurrent s/p NG tube on suction 2. H/o HTN 3. H /o Prostate Cancer s/p prostatectomy and bladder surgery 4. H/o Dyslipidemia 5. H/o Type II DM Plan: NPO Still has NG tube IVF pain control pt is passing gas and had two water BM- so we will wait until surgery follow up to decide about NG tube and diet SCD for DVT proplhylaxis Problems: Subjective 24 Hr Interval Summary Free Text/Dictation pt still has NG tube, Passing gas, has two watery BMs, No fever, no chills Exam/Review of Systems Vital Signs Vitals Vital Signs Date Time Temp Pulse Resp B/P Pulse Ox O2 Delivery O2 Flow Rate FiO2 01/29/17 07:18 97.7 58 18 140/73 98 01/28/17 23:30 1.0 01/28/17 16:06 Room Air Intake and Output 01/28/17 01/28/17 01/29/17 15:00 23:00 07:00 Intake Total 460 ml 910 ml Output Total 1700 ml 900 ml Balance -1240 ml 10 ml Exam Constitutional: alert ENMT: other (NG tube in place ) Neck: non-tender, supple Respiratory: clear to auscultation, diminished breath sounds, normal air movement Cardiovascular: regular rate and rhythm Gastrointestinal: non-tender, soft Musculoskeletal: muscle tone, nl extremities to inspection, nl gait and stance Extremities: normal pulses Neurological: GEOMAGNETICIAN II-XII intact, nl mental status, nl speech, nl strength Skin: nl turgor Lymph: nl lymph nodes Results Result Diagram: 01/29/17 04501/29/17 045 Results 24 hrs Laboratory Tests Test 01/28/17 17:49 01/28/17 21:11 01/29/17 01:17 01/29/17 04:50 Bedside Glucose 126 171 132 White Blood Count 9.2 # Red Blood Count 4.01 L Hemoglobin 11.6 L Hematocrit 35.5 L Mean Corpuscular Volume 88.5 Mean Corpuscular Hemoglobin 28.9 L Mean Corpuscular Hemoglobin Concent 32.7 Red Cell Distribution Width 13.8 Platelet Count 146 # Mean Platelet Volume 10.7 H Neutrophils % 62.3 Lymphocytes % 27.3 Monocytes % 8.4 Eosinophils % 1.5 Basophils % 0.2 Nucleated Red Blood Cells % 0.0 Neutrophils # 5.8 Lymphocytes # 2.5 Monocytes # 0.8 Eosinophils # 0.1 Basophils # 0.0 Nucleated Red Blood Cells # 0.0 Sodium Level 145 H Potassium Level 4.0 Chloride Level 109 Carbon Dioxide Level 30 Anion Gap 10 # Blood Urea Nitrogen 18 Creatinine 1.19 Glucose Level 143 # Hemoglobin A1c 6.5 H Calcium Level 8.7 Phosphorus Level 4.1 Magnesium Level 2.0 Total Bilirubin 0.6 Direct Bilirubin 0.00 Indirect Bilirubin 0.6 Aspartate Amino Transf (AST/SGOT) 24 Alanine Aminotransferase (ALT/SGPT) 41 Alkaline Phosphatase 37 L Total Protein 6.7 # Albumin 3.4 # Globulin 3.30 H Albumin/Globulin Ratio 1.03 Test 01/29/17 05:11 01/29/17 09:26 01/29/17 13:06 Bedside Glucose 146 152 135 Medications Medications Current Medications Dextrose/Sodium Chloride (D5-1/2ns) 1,000 ml @ 120 mls/hr Q8H20M IV Last administered on 01/29/17 03:38; Admin Dose 120 MLS/HR; Start 01/28/17 at 06: 02 Ondansetron HCl (Zofran Inj) 4 mg Q6H PRN IV NAUSEA AND/OR VOMITING Last administered on 01/28/17 15:35; Admin Dose 4 MG; Start 01/28/17 at 06:30 Morphine Sulfate (morphine) 4 mg Q4H PRN IV SEVERE PAIN LEVEL 7-10 Last administered on 01/28/17 17:55; Admin Dose 4 MG; Start 01/28/17 at 06:30 Famotidine (Pepcid Iv) 20 mg Q12 IV Last administered on 01/29/17 08:39; Admin Dose 20 MG; Start 01/28/17 at 09:00 Diagnostic Test (Pha) (Accu-Chek) 1 ea 02 XX ; Start 01/29/17 at 02:00 Insulin Glargine 15 unit 15 unit QHS SC Last administered on 01/28/17 21:16; Admin Dose 15 UNIT; Start 01/28/17 at 21:00 Ampicillin Sodium/ Sulbactam Sodium (Unasyn 3gm/NS (Pmx)) 100 ml @ 100 mls/hr Q8H IVPB Last administered on 01/29/17 06:34; Admin Dose 100 MLS/HR; Start 01/28/17 at 06:30 Miscellaneous Information 1 ea NOTE XX ; Start 01/28/17 at 06:30 Glucose (Glutose) 15 gm Q15M PRN PO DECREASED GLUCOSE; Start 01/28/17 at 06:30 Glucose (Glutose) 22.5 gm Q15M PRN PO DECREASED GLUCOSE; Start 01/28/17 at 06: 30 Dextrose (D50w Syringe) 25 ml Q15M PRN IV DECREASED GLUCOSE; Start 01/28/17 at 06:30 Dextrose (D50w Syringe) 50 ml Q15M PRN IV DECREASED GLUCOSE; Start 01/28/17 at 06:30 Glucagon (Glucagen) 1 mg Q15M PRN IM DECREASED GLUCOSE; Start 01/28/17 at 06: 30 Glucose (Glutose) 15 gm Q15M PRN BUCCAL DECREASED GLUCOSE; Start 01/28/17 at 06:30 Insulin Aspart (Novolog Insulin Pen) NOVOLOG *MODERATE* ALGORI... Q4 SC Last administered on 01/29/17 09:30; Admin Dose 2 UNIT; Start 01/28/17 at 21:00 MIHAELA HORTON MD Jan 29, 2017 14:29
--- NOTE | 2017-01-29 17:18 | RADRPT ---
PROCEDURE: XR Abdomen. CLINICAL INDICATION: 76-year of age, male. Abdominal pain. Follow-up small bowel obstruction TECHNIQUE: Supine and upright AP views of the abdomen. COMPARISON: Small bowel follow-through and CT January 28, 2017 FINDINGS: There is an enteric tube in the stomach. There are mildly dilated loops of small bowel in the central abdomen with air-fluid levels measuring up to 3.4 cm. Oral contrast administered for the small bowel follow-through 1 day prior is canal th roughout the colon and rectum. The appearance is in keeping with a partial small-bowel obstruction. No extraluminal gas collections are identified. No abnormal abdominal calcifications. there are surgical clips in the pelvis. No acute bony abnormality. IMPRESSION: Mildly dilated loops of small bowel with air-fluid levels in the central abdomen are still present. Orally administered contrast administered for a small bowel follow-through performed 1 day prior is now in the colon and rectum in keeping with a partial small bowel obstruction that is likely low gra de. RPTAT: HCTS Physician Sai Date Time Electronically viewed and signed by Physician Sai on 01/29/2017 17:17 /
[2017-01-29 20:01] VITALS: BP 149/70; RESP 18
[2017-01-29] MEDS: INSULIN GLARGINE [LANtus] 3 ML PEN SC SCH (21:23)
[2017-01-30] MEDS: INSULIN ASPART [NOVOLOG] 3 ML PEN SC SCH ×4 (01:00→11:40)
[2017-01-30 02:00] VITALS: BP 154/69; RESP 18
[2017-01-30] MEDS: ACCU-CHEK XX SCH (02:00)
[2017-01-30 05:38] LABS: BASOPHILS % 0.4 % (0.0-2.0); EOSINOPHILS # 0.2 10^3/ul (0.0-0.5); EOSINOPHILS % 2.3 % (0.0-7.0); HEMATOCRIT 33.6 % (42.0-52.0); HEMOGLOBIN 11.3 g/dl (14.0-18.0); LYMPHOCYTES # 2.5 10^3/ul (0.8-2.9); LYMPHOCYTES % 34.4 % (15.0-51.0); MEAN CORPUSCULAR HEMOGLOBIN 29.7 pg (29.0-33.0); MEAN CORPUSCULAR HGB CONC 33.6 g/dl (32.0-37.0); MEAN CORPUSCULAR VOLUME 88.2 fl (82.0-101.0); MEAN PLATELET VOLUME 10.9 fl (7.4-10.4); MONOCYTE # 0.6 10^3/ul (0.3-0.9); MONOCYTES % 7.8 % (0.0-11.0); NEUTROPHILS % 54.8 % (39.0-77.0); PLATELET COUNT 138 10^3/UL (140-415); RED BLOOD COUNT 3.81 10^6/ul (4.70-6.10); RED CELL DISTRIBUTION WIDTH 13.4 % (11.5-14.5); WHITE BLOOD COUNT 7.3 10^3/ul (4.8-10.8)
[2017-01-30 05:47] LABS: INR 1.13; PROTIME 14.5 Sec (12.2-14.2); PT RATIO 1.1
[2017-01-30 06:14] LABS: ALBUMIN 3.5 g/dl (3.3-4.9); ALBUMIN/GLOBULIN RATIO 1.16; BILIRUBIN,INDIRECT 0.7 mg/dl (0-1.1); BILIRUBIN,TOTAL 0.7 mg/dl (0.2-1.3); CALCIUM 8.3 mg/dl (8.4-10.2); CREATININE 1.05 mg/dl (0.61-1.24); POTASSIUM 3.5 mmol/L (3.5-5.1); TOTAL PROTEIN 6.5 g/dl (6.1-8.1)
[2017-01-30] MEDS: AMPICILLIN/SULB 3 GM/NS (PMX) 100 ML IVPB SCH ×2 (06:21→14:30)
--- NOTE | 2017-01-30 07:54 | PN ---
Date/Time of Note Date/Time of Note DATE: 01/30/17 TIME: 07:53 Assessment/Plan Lines/Catheters IV C[facility]ter Type (from [facility] Peripheral IV Assessment/Plan Chief Complaint/Hosp Course HD#2 for SBO - resolving Advance to clears D/C later today if tolerates Problems: Subjective 24 Hr Interval Summary HD#2 for SBO Constitutional: BM, flatus, no complaints Exam/Review of Systems Vital Signs Vitals Vital Signs Date Time Temp Pulse Resp B/P Pulse Ox O2 Delivery O2 Flow Rate FiO2 01/30/17 02:01 1.0 01/30/17 02:00 98.1 54 18 154/69 94 01/28/17 16:06 Room Air Intake and Output 01/29/17 01/29/17 01/30/17 15:00 23:00 07:00 Intake Total 100 ml 940 ml 100 ml Output Total 600 ml 850 ml Balance 100 ml 340 ml -750 ml Exam Constitutional: alert, oriented Neck: supple Respiratory: clear to auscultation Cardiovascular: regular rate and rhythm Gastrointestinal: non-tender, other (nondistended), soft Results Result Diagram: 01/30/17 0427 01/30/17 0426 CRYSTAL RIDDLE MD Jan 30, 2017 07:54
[2017-01-30 08:10] VITALS: BP 173/70; RESP 20
[2017-01-30] MEDS: FAMOTIDINE 20 MG INJ IV SCH (08:50)
[2017-01-30] MEDS: DEXTROSE 5%-0.45% NACL 1,000 ML IV SCH (10:06)
[2017-01-30 10:34] VITALS: BP 147/65; RESP 19
[2017-01-30 14:17] VITALS: BP 120/56; RESP 20
--- NOTE | 2017-01-30 14:31 | PDOCDIS ---
Discharge Instructions DIAGNOSIS Discharge Diagnosis 1. acute small bowel obstruction 2. H/o HTN 3. H /o Prostate Cancer s/p prostatectomy and bladder surgery 4. H/o Dyslipidemia 5. H/o Type II DM CONDITION Patient Condition: Stable HOME CARE INSTRUCTIONS: Diet Instructions: CARB CONTROLLED/ADASpecial Diet: Advance diet as tolerated ACTIVITY: Activity Restrictions: No Restrictions Bathing Restrictions: Shower FOLLOW UP/APPOINTMENTS Follow-up Plan 1. Follow-up with her primary care provider within a week 2. Follow-up with your top stop attacher within a week ERICA ADAIR Jan 30, 2017 14:31
[2017-01-31] MEDS ORDERED: ACCU-CHEK XX SCH (02:00)
--- NOTE | 2017-01-31 07:57 | RADRPT ---
PROCEDURE: XR Abdomen. CLINICAL INDICATION: Small bowel obstruction. TECHNIQUE: AP abdomen x-ray. COMPARISON: X-ray of the abdomen from January 29, 2014. Small bowel series from January 28, 2017. FINDINGS: The nasogastric tube has been removed. There is near complete resolution of contrast within the colo n. No distended loops of bowel or fluid levels are noted.There is no definite evidence of bowel obstruc tion.There are no definite densities overlying the kidneys and ureters. The osseous structures are intact. Multiple surgical clips are noted within the bilateral pelvis. IMPRESSION: No definite evidence of bowel obstruction. The nasogastric tube has been removed. Nearly complete resolution of contrast within the colon. Further findings as detailed above. RPTAT: PP .Francisco Robbins MD, Date Time Electronically viewed and signed by .Francisco Robbins MD, on 01/31/2017 07:57 .F/
--- NOTE | 2017-02-03 14:33 | DS ---
Date/Time of Note Date/Time of Note DATE: 02/03/17 TIME: 14:29 Discharge Summary Admission/Discharge Info Admit Date/Time Jan 28, 2017 at 12:10 Discharge Date/Time Jan 30, 2017 at 15:00 Discharge Diagnosis 1. acute small bowel obstruction 2. H/o HTN 3. H /o Prostate Cancer s/p prostatectomy and bladder surgery 4. H/o Dyslipidemia 5. H/o Type II DM Patient Condition: Stable Consults 1. Dr. Noel Salcedo [facility] Course This is a 76-year-old male with history of hypertension, prostate cancer status post prostatectomy, bladder surgery, dyslipidemia, type 2 diabetes, small bowel obstruction, came to [facility] due to reports of abdominal pain. Patient had been reporting also associated diarrhea as well. He subsequently went to [facility] for further evaluation. Upon examination he had a CT scan of his abdomen that did show moderately dilated small bowel consistent with small bowel obstruction. Patient was seen by general surgeon again and did initially have NG tube placed. Patient was placed on IV fluids and he did have return of bowel function. No surgical intervention was needed. We did advance his diet and did tolerate well. During his course of stay he did improve. He was otherwise optimized medically. He was continued on antihypertensives for his hypertension and low fat low cholesterol diet for dyslipidemia. He also is on insulin for his diabetes. The plan of care was discussed with the patient patient did verbalize understanding. On the day of discharge patient was in stable condition Discussed plan of care with Dr. Real [facility] Active Scripts Docusate Sodium* (Colace*) 100 Mg Capsule, 100 MG PO BID, #60 CAP Prov:DIVYA SPAULDING MD 01/25/16 Reported Medications Insulin Detemir (Levemir Flextouch) 100 Unit/1 Ml Insuln.pen, 32 UNIT SQ QHS 01/28/17 Glipizide* (Glipizide*) 10 Mg Tablet, 10 MG PO DAILY, TAB 01/24/16 Colestipol HCl (Colestipol HCl) 1 Gm Tablet, 1 GM PO, TAB 01/24/16 Atorvastatin Calcium (Atorvastatin Calcium) 10 Mg Tablet, 10 MG PO QHS, #30 TAB 10/25/15 Nifedipine* (Adalat CC*) 30 Mg Tablet.sa, 30 MG PO DAILY, TAB.SA 10/20/14 Fluoxetine Hcl* (Fluoxetine Hcl*) 40 Mg Capsule, 40 MG PO DAILY, CAP 10/20/14 Discontinued Reported Medications Insulin Isophan/Regular (Humulin 70/30) 100 Units/Ml Susp, 10 UNIT SC AC BREAKFAST BEDTIME, EA 01/24/16 Tramadol HCl (Tramadol HCl) 50 Mg Tab, 50 MG PO Q6H Y for PAIN, TAB 10/20/14 Discontinued Scripts Dextromethorphan Hb-Promethazine Hcl (Promethazine DM Syrup) 473 Ml Syrup, 5 ML PO Q6H Y for COUGH, #4 OZ Prov:JESUSITA WILLIS PA-C 07/07/16 Benzonatate* (Tessalon Perle*) 100 Mg Capsule, 100 MG PO Q8H Y for COUGH, #30 CAP Prov:JESUSITA WILLIS PA-C 07/07/16 Polyethylene Glycol* (Miralax*) 17 Gm Powd.pack, 17 GM PO DAILY Y for CONSTIPATION, #30 PACKET Prov:DIVYA SPAULDING MD 01/25/16 Follow-up Plan 1. Follow-up with her primary care provider within a week 2. Follow-up with your security vehicle patrol officer within a week Primary Care Provider Zechariah Rosa MD Time spent on discharge: > 30 minutes ERICA ADAIR Feb 03, 2017 14:33
== END 2017-01-30 15:00 | disposition home or self-care (01) | DRG 390 ==
LOC: E/R 04:11 → MS1 12:10
PROVIDERS: ADMIT Internal Medicine; ATTEND Internal Medicine
DX: K56.609 Unspecified intestinal obstruction, unspecified as to partial versus complete obstruction (principal); E11.9 Type 2 diabetes mellitus without complications; I10 Essential (primary) hypertension; E78.5 Hyperlipidemia, unspecified; Z79.4 Long term (current) use of insulin; Z85.46 Personal history of malignant neoplasm of prostate
CPT/HCPCS: 36415; 74010; 74176; 74250; 80053; 81001; 82962; 83036; 83690; 83735; 84100; 85025; 85610; 85730; 90686; 96374; 96375; J0295; J1170; J1815; J2270; J2405; J7030; J7042; Q9967

== ENCOUNTER 2017-07-14 17:05 | Inpatient (IN) | END 2017-07-20 13:46 | disposition home health service (06) | DRG 389 ==

== ENCOUNTER 2018-09-15 04:19 | Inpatient (IN) | payer OTHER ==
[~2018-09-15] VITALS: Ht 172.7 cm; Wt 73.0 kg
[~2018-09-15 04:19] MED LIST changes: -BENZ100C70 PO; -COLE1TAB2 PO; -D-ME473S18 PO; -DOCU-144 PO; -GLIP-95 PO; +GLIP10TA14 PO; +INSU100I27 SQ; +LACT1CAP28 PO; +LANC-831 MC; +MELA10TA3 PO; -NIFE30TA43 PO; -NOVO7030 SC; +ONDA4TAB14 PO; -POLY17PO6 PO; -TRAM50TA2 PO; +TRAZ150T65 PO; +[UNRECOGNIZED DRUG - SUPPLY]
[2018-09-15] MEDS ORDERED: ONDANSETRON 4 MG INJ IV STA (04:54)
[2018-09-15] MEDS ORDERED: morphine 2 MG INJ IV STA (04:54)
[2018-09-15] MEDS ORDERED: SOD CHLORIDE 0.9% 500 ML IV STA (04:54)
[2018-09-15] MEDS ORDERED: HYDROmorphONE 0.5 MG/0.5 ML SYG IV STA (05:19)
[2018-09-15] MEDS ORDERED: NIFE30TA23 PO (05:27)
[2018-09-15] MEDS ORDERED: CHOL4PAC PO (05:29)
--- NOTE | 2018-09-15 06:50 | ERD ---
ER Documentation Chief Complaint Chief Complaint LEFT QUADRANT AP, N/V X 1 DAY HPI This is a very pleasant 78-year-old male who presents to the emergency department complaining of 24 hours of persistent worsening abdominal pain. The patient indicates he has a past medical history of prostate carcinoma which is in remission. The patient underwent a surgical intervention with a bladder pouch. He indicates that last June he had a small bowel obstruction. He has had recurrent multiple small bowel obstructions he indicates this pain is similar nature to those previous episodes. The pain is 10 out of 10 in intensity. He has had abdominal distention. He has not experience any flatulence and had one bowel movement roughly 24 hours prior to arrival. The patient has had no fevers or shaking or chills. He did not take any analgesic medication prior to arrival. He has no chest pain. He denies any hemoptysis hematemesis or melanotic stools. ROS All systems reviewed and are negative except as per history of present illness. Medications Home Meds Active Scripts Insulin Detemir (Levemir Flextouch) 100 Unit/1 Ml Insuln.pen, 32 UNIT SQ QHS for 30 Days, #5 SYR 3 Refills Prov:ILEANA HUIZAR MD 07/20/17 [Accu-check strips] No Conflict Check, STRIP AC MEALS AND BEDTIME for ELEVATED GLUCOSE, #120 3 Refills Prov:ILEANA HUIZAR MD 07/20/17 Lancets (Blood Lancets) 1 Each Each, 1 EACH MC AC MEALS AND BEDTIME for ELEVATED GLUCOSE, #120 Prov:ILEANA HUIZAR MD 07/20/17 Ondansetron (Ondansetron Odt) 4 Mg Tab.rapdis, 4 MG PO Q6H PRN for NAUSEA AND/OR VOMITING for 10 Days, #20 TAB Prov:ILEANA HUIZAR MD 07/20/17 Lactobacillus Rhamnosus GG (Culturelle) 1 Each Capsule, 1 CAP PO WITH MEALS for 30 Days, #90 CAP Prov:ILEANA HUIZAR MD 07/20/17 Reported Medications Cholestyramine/Aspartame (Cholestyramine Light Packet) 4 Gm Powd.pack, 1 PACKET PO BID for 90 Days 09/15/18 Nifedipine* (Nifedipine ER*) 30 Mg Tablet.sa, 30 MG PO QAM, TAB.SA 09/15/18 Melatonin (Melatonin ER) 10 Mg Tablet.er, 10 MG PO HS, TAB.SA 07/14/17 Trazodone Hcl* (Desyrel*) 150 Mg Tablet, 150 MG PO QHS, #30 TAB 07/14/17 Fluoxetine Hcl* (Fluoxetine Hcl*) 40 Mg Capsule, 40 MG PO DAILY, CAP 07/14/17 Atorvastatin Calcium (Atorvastatin Calcium) 10 Mg Tablet, 10 MG PO QHS, #30 TAB 07/14/17 Glipizide* (Glipizide*) 10 Mg Tablet, 10 MG PO AC BREAKFAST DINNER, TAB 07/14/17 Allergies Allergies: Coded Allergies: Sulfa (Sulfonamide Antibiotics) (Unverified Allergy, Mild, 07/14/17) PMhx/Soc History of Surgery: Yes (bladder sx (1999) retinal detachment of right eye 07/12) Anesthesia Reaction: No Hx Neurological Disorder: No Hx Respiratory Disorders: No Hx Cardiac Disorders: Yes (HTN) Hx Psychiatric Problems: No Hx Miscellaneous Medical Probl: Yes (PROSTATE CA ) Hx Alcohol Use: Yes (Occasionally ) Hx Substance Use: No Hx Tobacco Use: No Smoking Status: Unknown if ever smoked Physical Exam Vitals Vital Signs Date Temp Pulse Resp B/P (MAP) Pulse Ox O2 O2 Flow FiO2 Time Delivery Rate 09/15/18 97.1 83 16 128/82 100 Room Air 07:00 (97) 09/15/18 52 14 150/71 100 Room Air 06:06 (97) 09/15/18 96.9 77 20 124/61 100 04:27 (82) Physical Exam Constitutional:Well-developed. Well-nourished. Patient appears to be discomfort secondary to pain. HEENT:Normocephalic. Atraumatic.Pupils were equal round reactive to light. Moist mucous membranes.No tonsillar exudates. Neck: No nuchal rigidity. No lymphadenopathy. No posterior cervical spine tenderness or step-offs. Respiratory: Not using accessory muscles of respiration.Lungs were clear to auscultation bilaterally. No rhonchi. No rales. No wheezing. Cardiovascular: Regular rate regular rhythm.No murmurs. No rubs were appreciated.S1, S2 normal. Distal pulses are palpable 2+ bilaterally. GI: Abdomen was soft. Tenderness in left lower quadrant with voluntary guardi ng. Distended. No pulsatile abdominal masses or bruits. No rebound. Hypoactive bowel sounds Muscle skeletal: Full range of motion of both the upper and lower extremities bilaterally.Normal muscle tone.No assymetrical calf tenderness or swelling. Skin: No petechia, no purpura. No lesions on the palms or the soles of the feet. No maculopapular rash. NEURO: Patient was alert, awake, orientated x3.No facial droop. Gait observed and normal with no ataxia.Speech had regular rate and rhythm. No focal neurological deficits. Result Diagram: 09/15/1818 09/15/1818 Results 24 hrs Laboratory Tests Test 09/15/18 05:18 09/15/18 05:19 White Blood Count 15.5 10^3/ul Red Blood Count 4.58 10^6/ul Hemoglobin 13.2 g/dl Hematocrit 39.4 % Mean Corpuscular Volume 86.0 fl Mean Corpuscular Hemoglobin 28.8 pg Mean Corpuscular Hemoglobin Concent 33.5 g/dl Red Cell Distribution Width 13.2 % Platelet Count 175 10^3/UL Mean Platelet Volume 11.0 fl Immature Granulocytes % 0.300 % Neutrophils % 72.1 % Lymphocytes % 22.5 % Monocytes % 4.6 % Eosinophils % 0.3 % Basophils % 0.2 % Nucleated Red Blood Cells % 0.0 /100WBC Immature Granulocytes # 0.050 10^3/ul Neutrophils # 11.2 10^3/ul Lymphocytes # 3.5 10^3/ul Monocytes # 0.7 10^3/ul Eosinophils # 0.0 10^3/ul Basophils # 0.0 10^3/ul Nucleated Red Blood Cells # 0.0 10^3/ul Sodium Level 139 mmol/L Potassium Level 4.9 mmol/L Chloride Level 102 mmol/L Carbon Dioxide Level 23 mmol/L Anion Gap 14 Blood Urea Nitrogen 23 mg/dl Creatinine 1.32 mg/dl Est Glomerular Filtrat Rate mL/min mL/min Glucose Level 240 mg/dl Calcium Level 10.1 mg/dl Total Bilirubin 0.9 mg/dl Direct Bilirubin 0.00 mg/dl Indirect Bilirubin 0.9 mg/dl Aspartate Amino Transf (AST/SGOT) 32 IU/L Alanine Aminotransferase (ALT/SGPT) 26 IU/L Alkaline Phosphatase 53 IU/L Troponin I < 0.012 ng/ml Total Protein 8.0 g/dl Albumin 4.5 g/dl Globulin 3.50 g/dl Albumin/Globulin Ratio 1.28 Lipase 133 U/L Prothrombin Time 12.8 Sec Prothrombin Time Ratio 1.0 INR International Normalized Ratio 0.95 Activated Partial Thromboplast Time 23.0 Sec Current Medications Medications Dose Sig/Daniela Start Time Status Last (Trade) Ordered Route PRN Stop Time Admin Dose Reason Admin Sodium 500 ml @ Q1H STAT 09/15/18 DC 09/15/18 Chloride 500 mls/hr IV 04:54 05:11 09/15/18 05:53 Morphine 2 mg ONCE STAT 09/15/18 DC 09/15/18 Sulfate IV 04:54 05:10 (morphine) 09/15/18 04:56 Ondansetron 4 mg ONCE STAT 09/15/18 DC 09/15/18 HCl (Zofran IV 04:54 05:10 Inj) 09/15/18 04:56 0.5 mg ONCE STAT 09/15/18 DC 09/15/18 Hydromorphone IV 05:19 06:09 HCl 09/15/18 05:20 (Dilaudid) Ondansetron 4 mg BRIDGE ORDER 09/15/18 HCl (Zofran PRN IV 07:30 Inj) NAUSEA/VOMITI 09/16/18 07:29 NG Procedures/MDM This patient presented to the emergency department with abdominal pain and was seen and evaluated by myself. My differential diagnosis included but was not limited to abdominal aortic aneurysm, appendicitis, pancreatitis, perforated peptic ulcer, perforated viscus, Boerhaaves syndrome or visceral pain such as diverticulitis, DKA, esophagitis, hepatitis or bowel obstruction. The patient was placed on a monitoring and evaluation advisor, continuous pulse oximetry, and IV a ccess was established by nursing staff. The patient was given intravenous morphine for analgesia control. This did not improve his symptoms and therefore he was given intravenous Dilaudid. CT scan of the abdomen was obtained and had not yet officially been read by the radiologist but was reviewed by myself which was suggestive of a small bowel obstruction. The patient symptoms progressively worsened. He developed severe abdominal discomfort with voluntary guarding. His clinical symptoms were suggestive of small bowel obstruction therefore at this time an NG tube was placed. This was placed by nursing staff. After the NG tube had been placed placement was checked by both myself and nursing staff. Using a Rafiq syringe the patient had good bowel sounds around the gastric region. Chest radiograph indicate that the nasogastric tube was in good position. The patient was hyperglycemic without ketosis. This was treated with IV fluids. Once the CT scan has been officially read by the radiologist it indicated the followin. Moderately dilated loops of small bowel with marked mid abdominal fecalization and decompressed distal small bowel consistent with small bowel obstruction. 2. Ascending and sigmoid colon diverticulosis. 3. Small hiatal hernia. 4. No CT evidence for appendicitis. 5. 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 6. Status post cystectomy with neobladder formation. 7. Prior radical prostatectomy. 8. Vascular calcifications. 9. Degenerative changes within the spine. I reviewed the patient's previous medical records. He was seen in [address] Gonzalez. In 2016 he was seen by the surgeon Dr. Salcedo. In 2017 he was seen by the surgeon Dr. Longoria of for small bowel obstructions. Most recently in July 2017. The patient will undergo surgical consult by Dr. Salcedo for small bowel obstruction and concern for porcelain gallbladder. He will be admitted to the hospitalist in serious condition. 12 Lead EKG tracing ordered and reviewed by myself showed: Normal sinus rhythm of 78 bpm and no arrhythmia. NJ interval normal. QRS duration normal. No ST segment elevation No ST segment depression. No changes consistent with acute ischemia. Critical Care: Time: 90 minutes Treatments/Evaluations: Close monitoring and treatment of unstable vital signs, cardiorespiratory, and neurologic status, while maintaining tight balance of fluid, respiratory, and cardiac interventions. Time does not include performing any of the above billable procedures. Departure Diagnosis: Primary Impression: SBO (small bowel obstruction) Additional Impression: Porcelain gallbladder Condition: Serious LUCINDA CALLES MD September 15, 2018 06:48
[2018-09-15] MEDS ORDERED: ONDANSETRON 4 MG INJ IV PRN (07:30)
[2018-09-15] MEDS ORDERED: NACL 0.9% 3 ML SYG IV SCH (09:30)
[2018-09-15] MEDS ORDERED: MAGNESIUM HYDROXIDE 30ML CUP PO PRN (09:30)
[2018-09-15] MEDS ORDERED: DOCUSATE SODIUM 100 MG CAP PO PRN (09:30)
[2018-09-15] MEDS: morphine 2 MG INJ IV PRN ×3 (10:36→21:17)
[2018-09-15] MEDS: DEXTROSE 5%-0.45% NACL 1,000 ML IV SCH ×2 (10:36→21:16)
[2018-09-15] MEDS: ONDANSETRON 4 MG INJ IV PRN ×2 (10:36→16:22)
[2018-09-15 10:45] VITALS: BP 150/68; PULSE 52; RESP 16
[2018-09-15 10:56] VITALS: Ht 172.7 cm; Wt 73.0 kg
[2018-09-15] MEDS ORDERED: DEXTROSE 50% 50 ML SYRINGE IV PRN ×2 (11:30)
[2018-09-15] MEDS ORDERED: GLUCOSE GEL 15 GRAM TUBE PO PRN ×2 (11:30)
[2018-09-15] MEDS ORDERED: hydrALAzine 20 MG INJ IV PRN (11:30)
[2018-09-15] MEDS ORDERED: GLUCAGON 1 MG INJ IM PRN (11:30)
[2018-09-15] MEDS ORDERED: GLUCOSE GEL 15 GRAM TUBE BUCCAL PRN (11:30)
[2018-09-15] MEDS: INSULIN ASPART [NOVOLOG] 3 ML PEN SC SCH ×3 (13:24→21:25)
--- NOTE | 2018-09-15 16:54 | HP ---
Date/Time of Note Date/Time of Note DATE: 09/15/18 TIME: 16:50 Assessment/Plan VTE Prophylaxis SCD applied (from Nsg): Yes Pharmacological prophylaxis: LMWH Lines/Catheters IV Catheter Type (from Nrsg): Peripheral IV Assessment/Plan Assessment/Plan 1. Small bowel obstruction - NG tube in place and will monitoring for BMs or flatus - Dr. Salcedo consulted by ED physician - once shows signs of return of bowel function will check SBFT and advance diet as able - NPO and IVF for now - pain control but discussed need to limit morphine use 2. KAMERON - most likely prerenal - will avoid nephrotoxic agents - IVF on board 3. History of prostate cancer - stable 4. Diabetes Mellitus - will give half insulin dose given NPO. Adjust as needed once tolerating PO - ISS and accuchecks 5. Hypertension - holding PO medications for now - Hydralazine PRN 6. 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 Disposition - Admit to med/surg for bowel rest and general surgery evaluation. Anticipate 3-5 day stay Result Diagram: 09/15/1818 09/15/18 0518 Results 24hrs Laboratory Tests Test 09/15/18 05:18 09/15/18 05:19 09/15/18 13:19 White Blood Count 15.5 #H Red Blood Count 4.58 L Hemoglobin 13.2 L Hematocrit 39.4 L Mean Corpuscular Volume 86.0 Mean Corpuscular Hemoglobin 28.8 L Mean Corpuscular Hemoglobin Concent 33.5 Red Cell Distribution Width 13.2 Platelet Count 175 Mean Platelet Volume 11.0 H Immature Granulocytes % 0.300 Neutrophils % 72.1 Lymphocytes % 22.5 Monocytes % 4.6 Eosinophils % 0.3 Basophils % 0.2 Nucleated Red Blood Cells % 0.0 Immature Granulocytes # 0.050 H Neutrophils # 11.2 H Lymphocytes # 3.5 H Monocytes # 0.7 Eosinophils # 0.0 Basophils # 0.0 Nucleated Red Blood Cells # 0.0 Sodium Level 139 Potassium Level 4.9 Chloride Level 102 Carbon Dioxide Level 23 Anion Gap 14 H Blood Urea Nitrogen 23 H Creatinine 1.32 H Est Glomerular Filtrat Rate mL/min Glucose Level 240 H Hemoglobin A1c 6.3 H Calcium Level 10.1 Total Bilirubin 0.9 Direct Bilirubin 0.00 Indirect Bilirubin 0.9 Aspartate Amino Transf (AST/SGOT) 32 Alanine Aminotransferase (ALT/SGPT) 26 Alkaline Phosphatase 53 Troponin I < 0.012 Total Protein 8.0 Albumin 4.5 Globulin 3.50 H Albumin/Globulin Ratio 1.28 Lipase 133 Prothrombin Time 12.8 Prothrombin Time Ratio 1.0 INR International Normalized Ratio 0.95 Activated Partial Thromboplast Time 23.0 Bedside Glucose 194 HPI/ROS Admit Date/Time Admit Date/Time September 15, 2018 at 07:28 Hx of Present Illness 78 yo M with PMH small bowel obstruction, hypertension, prostate cancer status post prostatectomy, bladder surgery, dyslipidemia, and type 2 diabetes presented to ED with worsening diffuse abdominal pain since last night. Patient also admits to multiple episodes of nonbloody, bilious emesis. He was last seen in June for small bowel obstruction and has noted admissions in the past to [facility] for the same. He rates his pain as 10/10, all quadrants. nothing makes better, worse with movement. Last BM was yesterday morning and was normal. He has not had any flatus since episode started. Denies any fevers, chills, headaches, dizziness, chest pain, shortness of breath, urinary issues. Patient has a history of surgical intervention with placement of bladder pouch. His last SBO resolved follow SBFT study. ROS All 12 systems reviewed and pertinent positives as per HPI. All others negative. Constitutional: nausea; No fatigue Eyes: No discharge ENT: No congestion Respiratory: No cough, No shortness of breath, No sputum, No wheezing Cardiovascular: No chest pain, No edema, No lightheadedness, No palpitations Gastrointestinal: pain, nausea, vomiting; No constipation, No diarrhea, No flatus, No passing stool Genitourinary: no complaints Musculoskeletal: No back pain, No neck pain, No restricted range of motion Skin: no complaints; No laceration, No rash Neurologic: No confusion, No focal-weakness, No headache, No syncope Endocrine: no complaints Lymphatic: no complaints Psychological: nl mood/affect Immunologic: no complaints PMH/Family/Social Past Medical History Medical History: diabetes, hypertension, other (prostate CA) Medications Current Medications Dextrose/Sodium Chloride 1,000 ml @ 100 mls/hr Q10H IV Last administered on 09/15/18at 10:36; Admin Dose 100 MLS/HR; Start 09/15/18 at 09:19 IV Flush (NS 3 ml) 3 ml PER PROTOCOL IV ; Start 09/15/18 at 09:30 Ondansetron HCl (Zofran Inj) 4 mg Q6H PRN IV NAUSEA/VOMITING Last administered on 09/15/18at 16:22; Admin Dose 4 MG; Start 09/15/18 at 09:30 Morphine Sulfate (morphine) 2 mg Q4H PRN IV .SEVERE PAIN 7-10 Last administered on 09/15/18at 16:22; Admin Dose 2 MG; Start 09/15/18 at 09:30 Docusate Sodium (Colace) 100 mg Q12H PRN PO .CONSTIPATION; Start 09/15/18 at 09:30 Magnesium Hydroxide (Milk Of Mag) 30 ml DAILY PRN PO .CONSTIPATION; Start 09/15/18 at 09:30 Famotidine (Pepcid Iv) 20 mg BID IV ; Start 09/15/18 at 21:00 Atorvastatin Calcium (Lipitor) 10 mg QHS PO ; Start 09/15/18 at 21:00 Fluoxetine HCl (Prozac) 40 mg DAILY PO ; Start 09/16/18 at 09:00 Nifedipine (Procardia Xl) 30 mg QAM PO ; Start 09/16/18 at 09:00 Trazodone HCl (Desyrel) 150 mg QHS PO ; Start 09/15/18 at 21:00 Insulin Aspart (Novolog Insulin Pen) NOVOLOG *MILD* ALGORI... Q4 SC Last administered on 09/15/18at 13:24; Admin Dose 2 UNIT; Start 09/15/18 at 13:00 Hydralazine HCl (Apresoline) 10 mg Q4H PRN IV SBP >170; Start 09/15/18 at 11:30 Miscellaneous Information 1 ea NOTE XX ; Start 09/15/18 at 11:30 Glucose (Glutose) 15 gm Q15M PRN PO DECREASED GLUCOSE; Start 09/15/18 at 11:30 Glucose (Glutose) 22.5 gm Q15M PRN PO DECREASED GLUCOSE; Start 09/15/18 at 11:30 Dextrose (D50w Syringe) 25 ml Q15M PRN IV DECREASED GLUCOSE; Start 09/15/18 at 11:30 Dextrose (D50w Syringe) 50 ml Q15M PRN IV DECREASED GLUCOSE; Start 09/15/18 at 11:30 Glucagon (Glucagen) 1 mg Q15M PRN IM DECREASED GLUCOSE; Start 09/15/18 at 11:30 Glucose (Glutose) 15 gm Q15M PRN BUCCAL DECREASED GLUCOSE; Start 09/15/18 at 11:30 Insulin Glargine (Lantus) 16 units HS SC ; Start 09/15/18 at 21:00 Metoclopramide HCl (Reglan) 10 mg Q4H PRN IV nausea; Start 09/15/18 at 17:00; Status UNV Coded Allergies: Sulfa (Sulfonamide Antibiotics) (Unverified Allergy, Mild, 07/14/17) Past Surgical History Past Surgical Hx: other (bladder pouch, prostate resection) Family History Significant Family History: diabetes, hypertension Social History Alcohol Use: none Smoking Status: Never smoker Drug Use: none Exam/Review of Systems Vital Signs Vitals Vital Signs Date Temp Pulse Resp B/P (MAP) Pulse Ox O2 O2 Flow FiO2 Time Delivery Rate 09/15/18 97.9 52 16 150/68 98 Room Air 10:45 (95) Exam Exam General: Currently lying in bed in no acute distress. HEENT: Atraumatic, normocephalic. The pupils are equal, round and reactive. Extraocular motor are intact. NG tube in place Neck: Supple with full range of motion. No rigidity or meningismus Chest: Nontender Lungs: Clear to auscultation bilaterally no crackles rales or wheezing Heart: Normal S1-S2, Regular rhythm and rate. No murmur, S3, or S4 Abdomen: Soft , diffuse tenderness, mildly distended , bowel sounds are present. No guarding no rebound tenderness Extremities: Normal to inspection, no edema no cyanosis Neurologic: Normal mental status, speech normal, cranial nerves II through XII are intact, motor and sensory are intact, no focal weakness Skin: no rashes or lesions Additional Comments Home medications reviewed ILEANA HUIZAR MD September 15, 2018 16:54
[2018-09-15] MEDS ORDERED: METOCLOPRAMIDE 10 MG INJ IV PRN (17:00)
[2018-09-15] MEDS ORDERED: LORAZEPAM 2 MG INJ IV PRN (18:30)
[2018-09-15] MEDS ORDERED: ACETAMINOPHEN 1000MG/100ML IV 100 ML IVPB PRN (18:30)
[2018-09-15 19:49] VITALS: BP 117/59; PULSE 69; RESP 18
--- NOTE | 2018-09-15 20:14 | CONS ---
Assessment/Plan Assessment/Plan Assessment/Plan (Daily) Recurrent small bowel obstruction N.p.o., IV fluids, NG tube We will perform limited abdominal series with oral contrast in morning. Consultation Date/Type/Reason Admit Date/Time September 15, 2018 at 07:28 Date/Time of Note DATE: 09/15/18 TIME: 20:09 Hx of Present Illness The patient is a 70-year-old male with multiple recurrent small bowel obstructions. He has had a prostatectomy and bladder reconstruction. These usu ally resolve with conservative management. He has had approximately 5 in the past. He usually gets about 1 a year. Started to develop crampy abdominal pain with nausea and emesis yesterday. His symptoms persisted overnight he presented to the ER. He describes the pain as 10 out of 10. Last bowel movement and flatus was yesterday. He denies fevers or chills. Past Medical History Medical History: diabetes, hypertension, other (prostate CA) Home Meds Active Scripts Insulin Detemir (Levemir Flextouch) 100 Unit/1 Ml Insuln.pen, 32 UNIT SQ QHS for 30 Days, #5 SYR 3 Refills Prov:ILEANA HUIZAR MD 07/20/17 [Accu-check strips] No Conflict Check, STRIP AC MEALS AND BEDTIME for ELEVATED GLUCOSE, #120 3 Refills Prov:ILEANA HUIZAR MD 07/20/17 Lancets (Blood Lancets) 1 Each Each, 1 EACH MC AC MEALS AND BEDTIME for ELEVATED GLUCOSE, #120 Prov:ILEANA HUIZAR MD 07/20/17 Ondansetron (Ondansetron Odt) 4 Mg Tab.rapdis, 4 MG PO Q6H PRN for NAUSEA AND/OR VOMITING for 10 Days, #20 TAB Prov:ILEANA HUIZAR MD 07/20/17 Lactobacillus Rhamnosus GG (Culturelle) 1 Each Capsule, 1 CAP PO WITH MEALS for 30 Days, #90 CAP Prov:ILEANA HUIZAR MD 07/20/17 Reported Medications Cholestyramine/Aspartame (Cholestyramine Light Packet) 4 Gm Powd.pack, 1 PACKET PO BID for 90 Days 09/15/18 Nifedipine* (Nifedipine ER*) 30 Mg Tablet.sa, 30 MG PO QAM, TAB.SA 09/15/18 Melatonin (Melatonin ER) 10 Mg Tablet.er, 10 MG PO HS, TAB.SA 07/14/17 Trazodone Hcl* (Desyrel*) 150 Mg Tablet, 150 MG PO QHS, #30 TAB 07/14/17 Fluoxetine Hcl* (Fluoxetine Hcl*) 40 Mg Capsule, 40 MG PO DAILY, CAP 07/14/17 Atorvastatin Calcium (Atorvastatin Calcium) 10 Mg Tablet, 10 MG PO QHS, #30 TAB 07/14/17 Glipizide* (Glipizide*) 10 Mg Tablet, 10 MG PO AC BREAKFAST DINNER, TAB 07/14/17 Medications Current Medications Dextrose/Sodium Chloride 1,000 ml @ 100 mls/hr Q10H IV Last administered on 09/15/18at 10:36; Admin Dose 100 MLS/HR; Start 09/15/18 at 09:19 IV Flush (NS 3 ml) 3 ml PER PROTOCOL IV ; Start 09/15/18 at 09:30 Ondansetron HCl (Zofran Inj) 4 mg Q6H PRN IV NAUSEA/VOMITING Last administered on 09/15/18at 16:22; Admin Dose 4 MG; Start 09/15/18 at 09:30 Morphine Sulfate (morphine) 2 mg Q4H PRN IV .SEVERE PAIN 7-10 Last administered on 09/15/18at 16:22; Admin Dose 2 MG; Start 09/15/18 at 09:30 Docusate Sodium (Colace) 100 mg Q12H PRN PO .CONSTIPATION; Start 09/15/18 at 09:30 Magnesium Hydroxide (Milk Of Mag) 30 ml DAILY PRN PO .CONSTIPATION; Start 09/15/18 at 09:30 Famotidine (Pepcid Iv) 20 mg BID IV ; Start 09/15/18 at 21:00 Atorvastatin Calcium (Lipitor) 10 mg QHS PO ; Start 09/15/18 at 21:00 Fluoxetine HCl (Prozac) 40 mg DAILY PO ; Start 09/16/18 at 09:00 Nifedipine (Procardia Xl) 30 mg QAM PO ; Start 09/16/18 at 09:00 Trazodone HCl (Desyrel) 150 mg QHS PO ; Start 09/15/18 at 21:00 Insulin Aspart (Novolog Insulin Pen) NOVOLOG *MILD* ALGORI... Q4 SC Last administered on 09/15/18at 18:11; Admin Dose 2 UNIT; Start 09/15/18 at 13:00 Hydralazine HCl (Apresoline) 10 mg Q4H PRN IV SBP >170; Start 09/15/18 at 11:30 Miscellaneous Information 1 ea NOTE XX ; Start 09/15/18 at 11:30 Glucose (Glutose) 15 gm Q15M PRN PO DECREASED GLUCOSE; Start 09/15/18 at 11:30 Glucose (Glutose) 22.5 gm Q15M PRN PO DECREASED GLUCOSE; Start 09/15/18 at 11:30 Dextrose (D50w Syringe) 25 ml Q15M PRN IV DECREASED GLUCOSE; Start 09/15/18 at 11:30 Dextrose (D50w Syringe) 50 ml Q15M PRN IV DECREASED GLUCOSE; Start 09/15/18 at 11:30 Glucagon (Glucagen) 1 mg Q15M PRN IM DECREASED GLUCOSE; Start 09/15/18 at 11:30 Glucose (Glutose) 15 gm Q15M PRN BUCCAL DECREASED GLUCOSE; Start 09/15/18 at 11:30 Insulin Glargine (Lantus) 16 units HS SC ; Start 09/15/18 at 21:00 Metoclopramide HCl (Reglan) 10 mg Q4H PRN IV nausea Last administered on 09/15/18at 18:20; Admin Dose 10 MG; Start 09/15/18 at 17:00 Acetaminophen 100 ml @ 400 mls/hr Q6H PRN IVPB PAIN LEVEL 1-3; Start 09/15/18 at 18:30; Stop 09/17/18 at 18:29 Lorazepam (Ativan) 0.5 mg Q6H PRN IV anxiety; Start 09/15/18 at 18:30 Allergies: Coded Allergies: Sulfa (Sulfonamide Antibiotics) (Unverified Allergy, Mild, 07/14/17) Past Surgical History Past Surgical Hx: other (bladder pouch, prostate resection) Family History Significant Family History: no pertinent family hx Social History Alcohol Use: none Smoking Status: Never smoker Drug Use: none Exam/Review of Systems Exam Vitals Vital Signs Date Temp Pulse Resp B/P (MAP) Pulse Ox O2 O2 Flow FiO2 Time Delivery Rate 09/15/18 98.3 69 18 117/59 96 Room Air 19:49 (78) Constitutional: alert, oriented, well developed Psych: no complaints, nl mood/affect Head: normocephalic Eyes: nl conjunctiva ENMT: nl external ears & nose, nl nasal mucosa & septum Neck: supple Respiratory: clear to auscultation, normal air movement Cardiovascular: regular rate and rhythm, nl pulses Gastrointestinal: soft, other (Moderately distended) Musculoskeletal: nl extremities to inspection Extremities: normal pulses 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, nl mental status, nl speech Skin: nl turgor Lymph: nl lymph nodes Results Result Diagram: 09/15/1818 09/15/18517 Results 24hrs Laboratory Tests Test 09/15/18 05:18 09/15/18 05:19 09/15/18 13:19 09/15/18 18:07 White Blood Count 15.5 #H Red Blood Count 4.58 L Hemoglobin 13.2 L Hematocrit 39.4 L Mean Corpuscular 86.0 Volume Mean Corpuscular 28.8 L Hemoglobin Mean Corpuscular 33.5 Hemoglobin Concent Red Cell 13.2 Distribution Width Platelet Count 175 Mean Platelet Volume 11.0 H Immature 0.300 Granulocytes % Neutrophils % 72.1 Lymphocytes % 22.5 Monocytes % 4.6 Eosinophils % 0.3 Basophils % 0.2 Nucleated Red Blood 0.0 Cells % Immature 0.050 H Granulocytes # Neutrophils # 11.2 H Lymphocytes # 3.5 H Monocytes # 0.7 Eosinophils # 0.0 Basophils # 0.0 Nucleated Red Blood 0.0 Cells # Sodium Level 139 Potassium Level 4.9 Chloride Level 102 Carbon Dioxide Level 23 Anion Gap 14 H Blood Urea Nitrogen 23 H Creatinine 1.32 H Est Glomerular Filtrat Rate mL/min Glucose Level 240 H Hemoglobin A1c 6.3 H Calcium Level 10.1 Total Bilirubin 0.9 Direct Bilirubin 0.00 Indirect Bilirubin 0.9 Aspartate Amino 32 Transf (AST/SGOT) Alanine 26 Aminotransferase (AL T/SGPT) Alkaline Phosphatase 53 Troponin I < 0.012 Total Protein 8.0 Albumin 4.5 Globulin 3.50 H Albumin/Globulin 1.28 Ratio Lipase 133 Prothrombin Time 12.8 Prothrombin Time 1.0 Ratio INR International 0.95 Normalized Ratio Activated 23.0 Partial Thromboplast Time Bedside Glucose 194 206 Imaging Imaging Patient: TIRSO PANDYA : 1940 Age: 78 Sex: M MR #: [id number] DOS: 09/15/18 050 Ordering MD: MARGARITA ZAZUETA MD Location: E/R Room/Bed: PROCEDURE: CT ABDOMEN/PELVIS WITHOUT CONTRAST CLINICAL INDICATION: 78-year-old male with abdominal pain. TECHNIQUE: The study was performed utilizing a GE [employer] VCT 64-slice CT scanner. Direct axial sections were obtained through the abdomen and pelvis without the use of intravenous contrast material. Sagittal and coronal reformations were obtained. One or more of the following dose reduction techniques were utilized: automated exposure control, adjustment of the mA and/or kV according to patient's size, use of iterative reconstruction technique. DICOM images are available. The images were reviewed on a PACS workstation. CTD/vol = 14.83 mGy; Total Exam DLP = 904.36 mGy.cm. COMPARISON: CT abdomen/pelvis July 14, 2017. FINDINGS: There is mild bibasilar subsegmental atelectasis and/or scarring. There is trace dependent pericardial effusion. There is no evidence for significant pleural effusion. The liver has a normal size and contour without focal areas of abnormal density. No intrahepatic biliary ductal dilatation is seen. The gallbla dder contains multiple large dependent gallstones extending into the gallbladder neck region. There is diffuse scattered peripheral gallbladder wall calcification again noted. The distal common bile duct measures approximately 7.4 mm.. The pancreas is without areas of abnormal attenuation. The spleen is identified and has a normal size with a small punctate calcification again identified within it.. The adrenal glands are unremarkable. The kidneys are without abnormal density. No hydroureteronephrosis nor nephroureterolithiasis is evident. There has been a prior cystectomy. There has been formation of a neobladder similar appearance to the patient's prior study. There is a small hiatal hernia. There are moderately dilated loops of small bowel with marked fecalization in the mid abdomen with the bowel distal to this decompressed. Multiple diverticula seen within the ascending and sigmoid colon without surrounding inflammatory changes. There is retained stool identified within the transverse and rectosigmoid colon. The appendix is retrocecal and is without abnormal thickening or surrounding inflammatory reaction. The prostate is not visualized. Surgical clips are seen within the pelvis and retroperitoneum consistent with radical prostatectomy. There is no significant free fluid. The aortoiliac vessels are mildly calcified without aneurysmal dilatation. Degenerative changes are present within the spine. IMPRESSION: 1. Moderately dilated loops of small bowel with marked mid abdominal fecalization and decompressed distal small bowel consistent with small bowel obstruction. 2. Ascending and sigmoid colon diverticulosis. 3. Small hiatal hernia. 4. No CT evidence for appendicitis. 5. 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 6. Status post cystectomy with neobladder formation. 7. Prior radical prostatectomy. 8. Vascular calcifications. 9. Degenerative changes within the spine. .Emiliano Tapia MD, MD Date Time Electronically viewed and signed by .Emiliano Tapia MD, MD on 09/15/2018 07:04 Medications Medication Current Medications Dextrose/Sodium Chloride 1,000 ml @ 100 mls/hr Q10H IV Last administered on 09/15/18at 10:36; Admin Dose 100 MLS/HR; Start 09/15/18 at 09:19 IV Flush (NS 3 ml) 3 ml PER PROTOCOL IV ; Start 09/15/18 at 09:30 Ondansetron HCl (Zofran Inj) 4 mg Q6H PRN IV NAUSEA/VOMITING Last administered on 09/15/18at 16:22; Admin Dose 4 MG; Start 09/15/18 at 09:30 Morphine Sulfate (morphine) 2 mg Q4H PRN IV .SEVERE PAIN 7-10 Last administered on 09/15/18at 16:22; Admin Dose 2 MG; Start 09/15/18 at 09:30 Docusate Sodium (Colace) 100 mg Q12H PRN PO .CONSTIPATION; Start 09/15/18 at 09:30 Magnesium Hydroxide (Milk Of Mag) 30 ml DAILY PRN PO .CONSTIPATION; Start at 09:30 Famotidine (Pepcid Iv) 20 mg BID IV ; Start 09/15/18 at 21:00 Atorvastatin Calcium (Lipitor) 10 mg QHS PO ; Start 09/15/18 at 21:00 Fluoxetine HCl (Prozac) 40 mg DAILY PO ; Start 09/16/18 at 09:00 Nifedipine (Procardia Xl) 30 mg QAM PO ; Start 09/16/18 at 09:00 Trazodone HCl (Desyrel) 150 mg QHS PO ; Start 09/15/18 at 21:00 Insulin Aspart (Novolog Insulin Pen) NOVOLOG *MILD* ALGORI... Q4 SC Last administered on 09/15/18at 18:11; Admin Dose 2 UNIT; Start 09/15/18 at 13:00 Hydralazine HCl (Apresoline) 10 mg Q4H PRN IV SBP >170; Start 09/15/18 at 11:30 Miscellaneous Information 1 ea NOTE XX ; Start 09/15/18 at 11:30 Glucose (Glutose) 15 gm Q15M PRN PO DECREASED GLUCOSE; Start 09/15/18 at 11:30 Glucose (Glutose) 22.5 gm Q15M PRN PO DECREASED GLUCOSE; Start 09/15/18 at 11:30 Dextrose (D50w Syringe) 25 ml Q15M PRN IV DECREASED GLUCOSE; Start 09/15/18 at 11:30 Dextrose (D50w Syringe) 50 ml Q15M PRN IV DECREASED GLUCOSE; Start 09/15/18 at 11:30 Glucagon (Glucagen) 1 mg Q15M PRN IM DECREASED GLUCOSE; Start 09/15/18 at 11:30 Glucose (Glutose) 15 gm Q15M PRN BUCCAL DECREASED GLUCOSE; Start 09/15/18 at 11:30 Insulin Glargine (Lantus) 16 units HS SC ; Start 09/15/18 at 21:00 Metoclopramide HCl (Reglan) 10 mg Q4H PRN IV nausea Last administered on 09/15/18at 18:20; Admin Dose 10 MG; Start 09/15/18 at 17:00 Acetaminophen 100 ml @ 400 mls/hr Q6H PRN IVPB PAIN LEVEL 1-3; Start 09/15/18 at 18:30; Stop 09/17/18 at 18:29 Lorazepam (Ativan) 0.5 mg Q6H PRN IV anxiety; Start 09/15/18 at 18:30 CRYSTAL RIDDLE MD September 15, 2018 20:14
[2018-09-15] MEDS ORDERED: INSULIN DETEMIR [LEVEMIR] 3ML CART SC SCH (21:00)
[2018-09-15] MEDS: FAMOTIDINE 20 MG INJ IV SCH (21:17)
[2018-09-15] MEDS: INSULIN GLARGINE [LANTus] (100 UNITS/ML) SYG SC SCH (21:26)
[2018-09-15] MEDS: traZODone 100 MG TAB PO SCH ×2 (21:31→23:34)
[2018-09-15] MEDS: ATORVASTATIN 10 MG TAB PO SCH ×2 (21:32→23:34)
[2018-09-16] MEDS: INSULIN ASPART [NOVOLOG] 3 ML PEN SC SCH ×4 (01:38→13:59)
[2018-09-16 02:20] VITALS: BP 119/63; PULSE 66; RESP 20
[2018-09-16] MEDS: DEXTROSE 5%-0.45% NACL 1,000 ML IV SCH (05:38)
[2018-09-16] MEDS: morphine 2 MG INJ IV PRN (05:46)
[2018-09-16] MEDS ORDERED: DIATR MEGLU/DIATRIZOATE SODIUM 120 ML BTL PO ONE (07:00)
[2018-09-16 07:45] VITALS: BP 145/69; PULSE 86; RESP 18
[2018-09-16] MEDS: FLUOXETINE 20 MG CAP PO SCH (09:23)
[2018-09-16] MEDS: NIFEdipine (XL) 30 MG TAB PO SCH (09:23)
[2018-09-16] MEDS: FAMOTIDINE 20 MG INJ IV SCH ×2 (09:26→20:32)
[2018-09-16 14:00] VITALS: BP 125/68; PULSE 80; RESP 18
--- NOTE | 2018-09-16 15:23 | PN ---
Date/Time of Note Date/Time of Note DATE: 09/16/18 TIME: 15:17 Assessment/Plan VTE Prophylaxis Risk score (from Ns)>0 risk: 5 SCD applied (from Ns): Yes Pharmacological prophylaxis: NA/contraindicated Pharm contraindication: low risk/ambulating Lines/Catheters IV Catheter Type (from Nrsg): Peripheral IV Urinary Cath still in place: No Assessment/Plan Assessment/Plan 1. Small bowel obstruction - Repeat Xrays this am show stable dilation of small bowel. Still with abdominal discomfort - General surgery consultation appreciated. Okay to advance diet to clears and monitor for tolerance - pain control 2. KAMERON - will continue on NS - most likely prerenal - will avoid nephrotoxic agents 3. History of prostate cancer - stable 4. Diabetes Mellitus - will increase Lantus to home dose based on PO intake - ISS and accuchecks 5. Hypertension - Hydralazine PRN 6. 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 Disposition - Will start clear diet per Surgery recommendations and monitor for tolerance. Once tolerating PO diet, will d/c home Result Diagram: 09/16/18 0444 09/16/18 0444 Results 24hrs Laboratory Tests Test 09/15/18 18:07 09/15/18 21:22 09/16/18 01:31 09/16/18 04:44 Bedside Glucose 206 181 166 White Blood Count 7.3 # Red Blood Count 4.22 L Hemoglobin 12.3 L Hematocrit 37.7 L Mean Corpuscular 89.3 Volume Mean Corpuscular 29.1 Hemoglobin Mean Corpuscular 32.6 Hemoglobin Concent Red Cell 14.0 Distribution Width Platelet Count 153 Mean Platelet Volume 10.7 H Immature 0.100 Granulocytes % Neutrophils % 55.4 Lymphocytes % 29.9 Monocytes % 14.1 H Eosinophils % 0.4 Basophils % 0.1 Nucleated Red Blood 0.0 Cells % Immature 0.010 Granulocytes # Neutrophils # 4.0 Lymphocytes # 2.2 Monocytes # 1.0 H Eosinophils # 0.0 Basophils # 0.0 Nucleated Red Blood 0.0 Cells # Sodium Level 141 Potassium Level 4.3 Chloride Level 105 Carbon Dioxide Level 29 Anion Gap 7 Blood Urea Nitrogen 24 H Creatinine 1.29 H Glucose Level 175 Calcium Level 8.8 Phosphorus Level 4.2 Magnesium Level 2.1 Albumin 3.9 Test 09/16/18 05:40 09/16/18 09:16 09/16/18 13:27 Bedside Glucose 187 168 179 Subjective 24 Hr Interval Summary Free Text/Dictation Patient states abdominal discomfort has improved but still with tenderness diffusely. had BM this am and denies any further episodes of vomiting. Exam/Review of Systems Exam Vitals Vital Signs Date Temp Pulse Resp B/P (MAP) Pulse Ox O2 O2 Flow FiO2 Time Delivery Rate 09/16/18 97.8 86 18 145/69 96 Room Air 07:45 (94) Intake and Output 09/15/18 09/15/18 09/16/18 1515:00 23:00 07:00 IntakeIntake Total 600 ml 1000 ml OutputOutput Total 1000 ml 1450 ml BalanceBalance -400 ml -450 ml Exam General: Currently lying in bed in no acute distress. HEENT: NG tube in place Lungs: Clear to auscultation bilaterally no crackles rales or wheezing Heart: Normal S1-S2, Regular rhythm and rate. No murmur, S3, or S4 Abdomen: Soft , mild tenderness to palpation diffusely, bowel sounds are present. No guarding no rebound tenderness Extremities: Normal to inspection, no edema no cyanosis Skin: no rashes or lesions Results Results 24hrs Laboratory Tests Test 09/15/18 18:07 09/15/18 21:22 09/16/18 01:31 09/16/18 04:44 Bedside Glucose 206 181 166 White Blood Count 7.3 # Red Blood Count 4.22 L Hemoglobin 12.3 L Hematocrit 37.7 L Mean Corpuscular 89.3 Volume Mean Corpuscular 29.1 Hemoglobin Mean Corpuscular 32.6 Hemoglobin Concent Red Cell 14.0 Distribution Width Platelet Count 153 Mean Platelet Volume 10.7 H Immature 0.100 Granulocytes % Neutrophils % 55.4 Lymphocytes % 29.9 Monocytes % 14.1 H Eosinophils % 0.4 Basophils % 0.1 Nucleated Red Blood 0.0 Cells % Immature 0.010 Granulocytes # Neutrophils # 4.0 Lymphocytes # 2.2 Monocytes # 1.0 H Eosinophils # 0.0 Basophils # 0.0 Nucleated Red Blood 0.0 Cells # Sodium Level 141 Potassium Level 4.3 Chloride Level 105 Carbon Dioxide Level 29 Anion Gap 7 Blood Urea Nitrogen 24 H Creatinine 1.29 H Glucose Level 175 Calcium Level 8.8 Phosphorus Level 4.2 Magnesium Level 2.1 Albumin 3.9 Test 5/31/19 05:40 09/16/18 09:16 09/16/18 13:27 Bedside Glucose 187 168 179 Medications Medication Current Medications Dextrose/Sodium Chloride 1,000 ml @ 100 mls/hr Q10H IV Last administered on 09/16/18 05:38; Admin Dose 100 MLS/HR; Start 09/15/18 at 09:19 IV Flush (NS 3 ml) 3 ml PER PROTOCOL IV ; Start 09/15/18 at 09:30 Ondansetron HCl (Zofran Inj) 4 mg Q6H PRN IV NAUSEA/VOMITING Last administered on 09/15/18 16:22; Admin Dose 4 MG; Start 09/15/18 at 09:30 Morphine Sulfate (morphine) 2 mg Q4H PRN IV .SEVERE PAIN 7-10 Last administered on 09/16/18 05:46; Admin Dose 2 MG; Start 09/15/18 at 09:30 Docusate Sodium (Colace) 100 mg Q12H PRN PO .CONSTIPATION; Start 09/15/18 at 09:30 Magnesium Hydroxide (Milk Of Mag) 30 ml DAILY PRN PO .CONSTIPATION; Start 09/15/18 at 09:30 Famotidine (Pepcid Iv) 20 mg BID IV Last administered on 09/16/18 09:26; Admin Dose 20 MG; Start 09/15/18 at 21:00 Atorvastatin Calcium (Lipitor) 10 mg QHS PO Last administered on 09/15/18 23:34; Admin Dose 10 MG; Start 09/15/18 at 21:00 Fluoxetine HCl (Prozac) 40 mg DAILY PO Last administered on 09/16/18 09:23; Admin Dose 40 MG; Start 09/16/18 at 09:00 Nifedipine (Procardia Xl) 30 mg QAM PO Last administered on 09/16/18 09:23; Admin Dose 30 MG; Start 09/16/18 at 09:00 Trazodone HCl (Desyrel) 150 mg QHS PO Last administered on 09/15/18 23:34; Admin Dose 150 MG; Start 09/15/18 at 21:00 Insulin Aspart (Novolog Insulin Pen) NOVOLOG *MILD* ALGORI... Q4 SC Last administered on 09/16/18 13:59; Admin Dose 1 UNIT; Start 09/15/18 at 13:00 Hydralazine HCl (Apresoline) 10 mg Q4H PRN IV SBP >170; Start 09/15/18 at 11:30 Miscellaneous Information 1 ea NOTE XX ; Start 09/15/18 at 11:30 Glucose (Glutose) 15 gm Q15M PRN PO DECREASED GLUCOSE; Start 09/15/18 at 11:30 Glucose (Glutose) 22.5 gm Q15M PRN PO DECREASED GLUCOSE; Start 09/15/18 at 11:30 Dextrose (D50w Syringe) 25 ml Q15M PRN IV DECREASED GLUCOSE; Start 09/15/18 at 11:30 Dextrose (D50w Syringe) 50 ml Q15M PRN IV DECREASED GLUCOSE; Start 09/15/18 at 11:30 Glucagon (Glucagen) 1 mg Q15M PRN IM DECREASED GLUCOSE; Start 09/15/18 at 11:30 Glucose (Glutose) 15 gm Q15M PRN BUCCAL DECREASED GLUCOSE; Start 09/15/18 at 11 :30 Insulin Glargine (Lantus) 16 units HS SC Last administered on 09/15/18at 21:26; Admin Dose 16 UNITS; Start 09/15/18 at 21:00 Metoclopramide HCl (Reglan) 10 mg Q4H PRN IV nausea Last administered on 09/15/18at 18:20; Admin Dose 10 MG; Start 09/15/18 at 17:00 Acetaminophen 100 ml @ 400 mls/hr Q6H PRN IVPB PAIN LEVEL 1-3; Start 09/15/18 at 18:30; Stop 09/17/18 at 18:29 Lorazepam (Ativan) 0.5 mg Q6H PRN IV anxiety; Start 09/15/18 at 18:30 ILEANA HUIZAR MD September 16, 2018 15:23
[2018-09-16] MEDS: SOD CHLORIDE 0.9% 1,000 ML IV SCH (15:42)
[2018-09-16] MEDS: Insulin NOVOLOG SS MILD Algorithm (SS with meals and bedtime) SC SCH ×2 (17:25→20:35)
[2018-09-16] MEDS ORDERED: INSULIN ASPART [NOVOLOG] 3 ML PEN SC SCH (17:25)
--- NOTE | 2018-09-16 18:11 | PN ---
Date/Time of Note Date/Time of Note DATE: 09/16/18 TIME: 18:10 Assessment/Plan Lines/Catheters IV Catheter Type (from Nrsg): Peripheral IV Huffman in Place (from Nrsg): No Assessment/Plan Assessment/Plan Resolved SBO Clears today Soft Diet abundio If tolerates, D/C in pm tomorrow Subjective 24 Hr Interval Summary Constitutional: BM, flatus Feeding: advancing diet Pain Control: well controlled Exam/Review of Systems Vital Signs Vitals Vital Signs Date Temp Pulse Resp B/P (MAP) Pulse Ox O2 O2 Flow FiO2 Time Delivery Rate 09/16/18 97.8 86 18 145/69 96 Room Air 07:45 (94) Intake and Output 09/15/18 09/15/18 09/16/18 1515:00 23:00 07:00 IntakeIntake Total 600 ml 1000 ml OutputOutput Total 1000 ml 1450 ml BalanceBalance -400 ml -450 ml Exam Constitutional: alert, oriented, well developed Gastrointestinal: soft, non-tender Results Result Diagram: 09/16/18 0444 09/16/18 0444 CRYSTAL RIDDLE MD September 16, 2018 18:11
[2018-09-16 19:25] VITALS: BP 111/55; PULSE 78; RESP 18
[2018-09-16] MEDS: ATORVASTATIN 10 MG TAB PO SCH (20:32)
[2018-09-16] MEDS: traZODone 100 MG TAB PO SCH (20:32)
[2018-09-16] MEDS: INSULIN GLARGINE [LANTus] (100 UNITS/ML) SYG SC SCH (20:38)
[2018-09-17] MEDS ORDERED: ACCUCHECK AT 2AM (Patients on SS coverage) XX SCH (02:00)
[2018-09-17 02:02] VITALS: BP 118/72; PULSE 72; RESP 20
[2018-09-17] MEDS: SOD CHLORIDE 0.9% 1,000 ML IV SCH (05:00)
[2018-09-17 07:28] VITALS: BP 124/63; PULSE 69; RESP 18
[2018-09-17] MEDS: Insulin NOVOLOG SS MILD Algorithm (SS with meals and bedtime) SC SCH ×2 (08:48→12:27)
[2018-09-17] MEDS: NIFEdipine (XL) 30 MG TAB PO SCH (09:11)
[2018-09-17] MEDS: FLUOXETINE 20 MG CAP PO SCH (09:11)
[2018-09-17] MEDS: FAMOTIDINE 20 MG INJ IV SCH (09:11)
--- NOTE | 2018-09-17 11:43 | PN ---
Date/Time of Note Date/Time of Note DATE: 09/17/18 TIME: 11:39 Assessment/Plan VTE Prophylaxis Risk score (from Ns)>0 risk: 3 SCD applied (from Ns): Yes Pharmacological prophylaxis: NA/contraindicated Pharm contraindication: low risk/ambulating Lines/Catheters IV Catheter Type (from Nrsg): Saline Lock Urinary Cath still in place: No Assessment/Plan Assessment/Plan 1. Small bowel obstruction- resolved - patient tolerating PO intake and having BMs. no further nausea with vomiting episodes - Xray results noted - General surgery consultation appreciated. Okay for d/c once tolerating diet - pain control 2. KAMERON- resolved - most likely prerenal - will avoid nephrotoxic agents 3. History of prostate cancer - stable 4. Diabetes Mellitus - will increase Lantus to home dose based on PO intake - ISS and accuchecks 5. Hypertension - Hydralazine PRN 6. 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 Disposition - Medically stable for discharge home Result Diagram: 09/17/1843909/17/180 Results 24hrs Laboratory Tests Test 09/16/18 13:27 09/16/18 17:53 09/16/18 20:34 09/17/18 04:40 Bedside Glucose 179 124 130 White Blood Count 6.7 Red Blood Count 3.64 L Hemoglobin 10.7 L Hematocrit 32.8 L Mean Corpuscular 90.1 Volume Mean Corpuscular 29.4 Hemoglobin Mean Corpuscular 32.6 Hemoglobin Concent Red Cell Distribution 13.5 Width Platelet Count 123 L Mean Platelet Volume 10.9 H Immature Granulocytes 0.200 % Neutrophils % 37.7 L Lymphocytes % 51.0 Monocytes % 8.9 Eosinophils % 2.0 Basophils % 0.2 Nucleated Red Blood 0.0 Cells % Immature Granulocytes 0.010 # Neutrophils # 2.5 Lymphocytes # 3.4 H Monocytes # 0.6 Eosinophils # 0.1 Basophils # 0.0 Nucleated Red Blood 0.0 Cells # Sodium Level 140 Potassium Level 3.9 Chloride Level 108 Carbon Dioxide Level 26 Anion Gap 6 Blood Urea Nitrogen 16 Creatinine 1.08 Glucose Level 126 # Calcium Level 8.2 L Phosphorus Level 3.2 Magnesium Level 2.2 Albumin 3.2 L Test 09/17/18 08:21 Bedside Glucose 146 Subjective 24 Hr Interval Summary Free Text/Dictation Patient is doing well and tolerating PO intake. had BMs without any issues. Exam/Review of Systems Exam Vitals Vital Signs Date Temp Pulse Resp B/P (MAP) Pulse Ox O2 O2 Flow FiO2 Time Delivery Rate 09/17/18 98.3 69 18 124/63 93 07:28 (83) 09/16/18 Room Air 14:00 Intake and Output 09/16/18 09/16/18 09/17/18 1515:00 23:00 07:00 IntakeIntake Total 1920 ml 1360 ml OutputOutput Total 1500 ml 400 ml BalanceBalance 420 ml 960 ml Exam General: Currently lying in bed in no acute distress. Lungs: Clear to auscultation bilaterally no crackles rales or wheezing Heart: Normal S1-S2, Regular rhythm and rate. No murmur, S3, or S4 Abdomen: Soft , nontender, nondistended, bowel sounds are present. No guarding no rebound tenderness Extremities: Normal to inspection, no edema no cyanosis Skin: no rashes or lesions Results Results 24hrs Laboratory Tests Test 09/16/18 13:27 09/16/18 17:53 09/16/18 20:34 09/17/18 04:40 Bedside Glucose 179 124 130 White Blood Count 6.7 Red Blood Count 3.64 L Hemoglobin 10.7 L Hematocrit 32.8 L Mean Corpuscular 90.1 Volume Mean Corpuscular 29.4 Hemoglobin Mean Corpuscular 32.6 Hemoglobin Concent Red Cell Distribution 13.5 Width Platelet Count 123 L Mean Platelet Volume 10.9 H Immature Granulocytes 0.200 % Neutrophils % 37.7 L Lymphocytes % 51.0 Monocytes % 8.9 Eosinophils % 2.0 Basophils % 0.2 Nucleated Red Blood 0.0 Cells % Immature Granulocytes 0.010 # Neutrophils # 2.5 Lymphocytes # 3.4 H Monocytes # 0.6 Eosinophils # 0.1 Basophils # 0.0 Nucleated Red Blood 0.0 Cells # Sodium Level 140 Potassium Level 3.9 Chloride Level 108 Carbon Dioxide Level 26 Anion Gap 6 Blood Urea Nitrogen 16 Creatinine 1.08 Glucose Level 126 # Calcium Level 8.2 L Phosphorus Level 3.2 Magnesium Level 2.2 Albumin 3.2 L Test 09/17/18 08:21 Bedside Glucose 146 Medications Medication Current Medications IV Flush (NS 3 ml) 3 ml PER PROTOCOL IV ; Start 09/15/18 at 09:30 Ondansetron HCl (Zofran Inj) 4 mg Q6H PRN IV NAUSEA/VOMITING Last administered on 09/15/18at 16:22; Admin Dose 4 MG; Start 09/15/18 at 09:30 Morphine Sulfate (morphine) 2 mg Q4H PRN IV .SEVERE PAIN 7-10 Last administered on 09/16/18at 05:46; Admin Dose 2 MG; Start 09/15/18 at 09:30 Docusate Sodium (Colace) 100 mg Q12H PRN PO .CONSTIPATION; Start 09/15/18 at 09:30 Magnesium Hydroxide (Milk Of Mag) 30 ml DAILY PRN PO .CONSTIPATION; Start 09/15/18 at 09:30 Famotidine (Pepcid Iv) 20 mg BID IV Last administered on 09/17/18at 09:11; Admin Dose 20 MG; Start 09/15/18 at 21:00 Atorvastatin Calcium (Lipitor) 10 mg QHS PO Last administered on 09/16/18at 20:32; Admin Dose 10 MG; Start 09/15/18 at 21:00 Fluoxetine HCl (Prozac) 40 mg DAILY PO Last administered on 09/17/18 09:11; Admin Dose 40 MG; Start 09/16/18 at 09:00 Nifedipine (Procardia Xl) 30 mg QAM PO Last administered on 09/17/18 09:11; Admin Dose 30 MG; Start 09/16/18 at 09:00 Trazodone HCl (Desyrel) 150 mg QHS PO Last administered on 09/16/18at 20:32; Admin Dose 150 MG; Start 09/15/18 at 21:00 Hydralazine HCl (Apresoline) 10 mg Q4H PRN IV SBP >170; Start 09/15/18 at 11:30 Miscellaneous Information 1 ea NOTE XX ; Start 09/15/18 at 11:30 Glucose (Glutose) 15 gm Q15M PRN PO DECREASED GLUCOSE; Start 09/15/18 at 11:30 Glucose (Glutose) 22.5 gm Q15M PRN PO DECREASED GLUCOSE; Start 09/15/18 at 11:30 Dextrose (D50w Syringe) 25 ml Q15M PRN IV DECREASED GLUCOSE; Start 09/15/18 at 11:30 Dextrose (D50w Syringe) 50 ml Q15M PRN IV DECREASED GLUCOSE; Start 09/15/18 at 11:30 Glucagon (Glucagen) 1 mg Q15M PRN IM DECREASED GLUCOSE; Start 09/15/18 at 11:30 Glucose (Glutose) 15 gm Q15M PRN BUCCAL DECREASED GLUCOSE; Start 09/15/18 at 11:30 Insulin Glargine (Lantus) 16 units HS SC Last administered on 09/16/18at 20:38; Admin Dose 16 UNITS; Start 09/15/18 at 21:00 Metoclopramide HCl (Reglan) 10 mg Q4H PRN IV nausea Last administered on 09/15/18at 18:20; Admin Dose 10 MG; Start 09/15/18 at 17:00 Acetaminophen 100 ml @ 400 mls/hr Q6H PRN IVPB PAIN LEVEL 1-3; Start 09/15/18 at 18:30; Stop 09/17/18 at 18:29 Lorazepam (Ativan) 0.5 mg Q6H PRN IV anxiety; Start 09/15/18 at 18:30 Sodium Chloride 1,000 ml @ 75 mls/hr [id number] IV Last administered on 09/17/18at 05:00; Admin Dose 75 MLS/HR; Start 09/16/18 at 15:30 Insulin Aspart (Novolog Insulin Pen) (Adult SC Insulin - Mild Algorithm)... AC MEALS AND BEDTIME SC Last administered on 09/17/18at 08:48; Admin Dose 1 UNIT; Start 09/16/18 at 17:25 Diagnostic Test (Pha) (Accu-Chek) 1 ea 02 XX ; Start 09/17/18 at 02:00 ILEANA HUIZAR MD Sep 17, 2018 11:43
--- NOTE | 2018-09-17 11:48 | PDOCDIS ---
Discharge Instructions DIAGNOSIS Discharge Diagnosis 1. Partial small bowel obstruction- resolved 2. Acute renal insufficiency secondary to dehydration- resolved 3. History of prostate cancer 4. Diabetes Mellitus, well controlled. A1c 6.3 5. Hypertension 6. 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 Follow up with your primary care physician in 1-2 weeks 2. Continue all medications as prescribed 3. If experiencing any concerning symptoms. please go to your nearest emergency department ILEANA HUIZAR MD Sep 17, 2018 11:48
[2018-09-17 13:34] VITALS: BP 126/92; PULSE 88; RESP 19
--- NOTE | 2018-09-17 16:47 | DS ---
Date/Time of Note Date/Time of Note DATE: 09/17/18 TIME: 16:43 Discharge Summary Admission/Discharge Info Admit Date/Time September 15, 2018 at 07:28 Discharge Date/Time Sep 17, 2018 at 14:25 Discharge Diagnosis 1. Partial small bowel obstruction- resolved 2. Acute renal insufficiency secondary to dehydration- resolved 3. History of prostate cancer 4. Diabetes Mellitus, well controlled. A1c 6.3 5. Hypertension 6. 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 Salcedo Hx of Present Illness 78 yo M with PMH small bowel obstruction, hypertension, prostate cancer status post prostatectomy, bladder surgery, dyslipidemia, and type 2 diabetes presented to ED with worsening diffuse abdominal pain since last night. Patient also admits to multiple episodes of nonbloody, bilious emesis. He was last seen in June for small bowel obstruction and has noted admissions in the past to [facility] for the same. He rates his pain as 10/10, all quadrants. nothing makes better, worse with movement. Last BM was yesterday morning and was normal. He has not had any flatus since episode started. Denies any fevers, chills, headaches, dizziness, chest pain, shortness of breath, urinary issues. Patient has a history of surgical intervention with placement of bladder pouch. His last SBO resolved follow SBFT study. Hospital Course Patient was admitted to med/surg for conservative treatment of partial small bowel obstruction. NG tube was placed in ED and hooked up to low suction. Patient was evaluated by general surgery who recommended Xray with contrast to reevaluate SBO. Patient was passing bowel movements and nausea with vomiting resolved. Xray showed stable appearance with mild dilation of small bowel. NG tube was removed and patient was tolerating PO intake. Patient had 2 bowel movements without any issues and was discharged home in good condition. Home Meds Active Scripts Insulin Detemir (Levemir Flextouch) 100 Unit/1 Ml Insuln.pen, 32 UNIT SQ QHS for 30 Days, #5 SYR 3 Refills Prov:ILEANA HUIZAR MD 07/20/17 [Accu-check strips] No Conflict Check, STRIP AC MEALS AND BEDTIME for ELEVATED GLUCOSE, #120 3 Refills Prov:ILEANA HUIZAR MD 07/20/17 Lancets (Blood Lancets) 1 Each Each, 1 EACH MC AC MEALS AND BEDTIME for ELEVATED GLUCOSE, #120 Prov:ILEANA HUIZAR MD 07/20/17 Reported Medications Cholestyramine/Aspartame (Cholestyramine Light Packet) 4 Gm Powd.pack, 1 PACKET PO BID for 90 Days 09/15/18 Nifedipine* (Nifedipine ER*) 30 Mg Tablet.sa, 30 MG PO QAM, TAB.SA 09/15/18 Melatonin (Melatonin ER) 10 Mg Tablet.er, 10 MG PO HS, TAB.SA 07/14/17 Trazodone Hcl* (Desyrel*) 150 Mg Tablet, 150 MG PO QHS, #30 TAB 07/14/17 Fluoxetine Hcl* (Fluoxetine Hcl*) 40 Mg Capsule, 40 MG PO DAILY, CAP 07/14/17 Atorvastatin Calcium (Atorvastatin Calcium) 10 Mg Tablet, 10 MG PO QHS, #30 TAB 07/14/17 Glipizide* (Glipizide*) 10 Mg Tablet, 10 MG PO AC BREAKFAST DINNER, TAB 07/14/17 Discontinued Scripts Ondansetron (Ondansetron Odt) 4 Mg Tab.rapdis, 4 MG PO Q6H PRN for NAUSEA AND/OR VOMITING for 10 Days, #20 TAB Prov:ILEANA HUIZAR MD 07/20/17 Lactobacillus Rhamnosus GG (Culturelle) 1 Each Capsule, 1 CAP PO WITH MEALS for 30 Days, #90 CAP Prov:ILEANA HUIZAR MD 07/20/17 Follow-up Plan 1. Follow up with your primary care physician in 1-2 weeks 2. Continue all medications as prescribed 3. If experiencing any concerning symptoms. please go to your nearest emergency department Primary Care Provider Zechariah Rosa MD Time spent on discharge: > 30 minutes Pending Labs Laboratory Tests Test 09/16/18 17:53 09/16/18 20:34 09/17/18 04:40 09/17/18 08:21 Bedside 124 130 146 Glucose mg/dL (70-220) mg/dL (70-220) mg/dL (70-220) White Blood 6.7 Count 10^3/ul (4.8-1 0.8) Red Blood 3.64 Count 10^6/ul (4.70- 6.10) Hemoglobin 10.7 g/dl (14.0-18. 0) Hematocrit 32.8 % (42.0-52.0) Mean 90.1 Corpuscular fl (82.0-101.0 Volume ) Mean 29.4 Corpuscular pg (29.0-33.0) Hemoglobin Mean 32.6 Corpuscular g/dl (32.0-37. Hemoglobin Conc 0) ent Red Cell 13.5 Distribution % (11.5-14.5) Width Platelet Count 123 10^3/UL (140-4 15) Mean Platelet 10.9 Volume fl (7.4-10.4) Immature 0.200 Granulocytes % % (0.001-0.429 ) Neutrophils % 37.7 % (39.0-77.0) Lymphocytes % 51.0 % (15.0-51.0) Monocytes % 8.9 % (0.0-11.0) Eosinophils % 2.0 % (0.0-7.0) Basophils % 0.2 % (0.0-2.0) Nucleated Red 0.0 Blood Cells % /100WBC (0.0-0 .0) Immature 0.010 Granulocytes # 10^3/ul (0.0-0 .031) Neutrophils # 2.5 10^3/ul (1.6-7 .5) Lymphocytes # 3.4 10^3/ul (0.8-2 .9) Monocytes # 0.6 10^3/ul (0.3-0 .9) Eosinophils # 0.1 10^3/ul (0.0-0 .5) Basophils # 0.0 10^3/ul (0.0-0 .1) Nucleated Red 0.0 Blood Cells # 10^3/ul (0.0-0 .0) Sodium Level 140 mmol/L (135-14 4) Potassium 3.9 Level mmol/L (3.5-5. 1) Chloride Level 108 mmol/L (97-110 ) Carbon Dioxide 26 Level mmol/L (21-31) Anion Gap 6 (5-13) Blood Urea 16 Nitrogen mg/dl (7-20) Creatinine 1.08 mg/dl (0.61-1. 24) Glucose Level 126 mg/dl (70-220) Calcium Level 8.2 mg/dl (8.4-10. 2) Phosphorus 3.2 Level mg/dl (2.5-4.9 ) Magnesium 2.2 Level mg/dl (1.7-2.5 ) Albumin 3.2 g/dl (3.3-4.9) Test 09/17/18 12:26 Bedside 133 Glucose mg/dL (70-220) ILEANA HUIZAR MD Sep 17, 2018 16:47
== END 2018-09-17 14:25 | disposition home or self-care (01) | DRG 389 ==
LOC: E/R 04:19 → SUATTDRO 07:22 → MS1 07:28
PROVIDERS: ADMIT Family Medicine; ATTEND Family Medicine
DX: K56.600 Partial intestinal obstruction, unspecified as to cause (principal); N17.9 Acute kidney failure, unspecified; E11.9 Type 2 diabetes mellitus without complications; E86.0 Dehydration; I10 Essential (primary) hypertension; E78.5 Hyperlipidemia, unspecified; Z79.4 Long term (current) use of insulin; Z85.46 Personal history of malignant neoplasm of prostate
CPT/HCPCS: 36415; 71045; 74018; 74019; 74176; 80053; 80069; 82962; 83036; 83690; 83735; 84484; 85025; 85610; 85730; 93005; 96374; 96375; J1170; J1815; J2270; J2405; J2765; J7030; J7040; J7042

== ENCOUNTER 2018-11-29 03:26 | Inpatient (IN) | payer OTHER ==
[~2018-11-29] VITALS: Ht 170.2 cm; Wt 76.5 kg
[~2018-11-29 03:26] MED LIST changes: +CHOL4PAC PO; -LACT1CAP28 PO; +NIFE30TA23 PO; -ONDA4TAB14 PO; +OXYB5TAB PO; +QUESTRAN PO
[2018-11-29 03:27] VITALS: Ht 170.2 cm; Wt 76.5 kg
[2018-11-29] MEDS ORDERED: SOD CHLORIDE 0.9% 500 ML IV STA (03:30)
[2018-11-29] MEDS ORDERED: ONDANSETRON 4 MG INJ IV STA (03:30)
[2018-11-29] MEDS ORDERED: morphine 4 MG/ML VIAL IV STA ×2 (03:30→04:50)
[2018-11-29] MEDS ORDERED: ONDANSETRON 4 MG INJ IV PRN ×2 (05:00→07:00)
[2018-11-29] MEDS ORDERED: ACETAMINOPHEN 325 MG TAB PO PRN (05:00)
[2018-11-29] MEDS ORDERED: NACL 0.9% 3 ML SYG IV SCH (07:00)
[2018-11-29] MEDS ORDERED: morphine 2 MG INJ IV PRN (07:00)
[2018-11-29] MEDS ORDERED: ALBUTEROL/IPRATROPIUM (NEB) 3 ML AMP HHN PRN (07:00)
[2018-11-29] MEDS ORDERED: GLUCOSE GEL 15 GRAM TUBE BUCCAL PRN (08:00)
[2018-11-29] MEDS ORDERED: GLUCAGON 1 MG INJ IM PRN (08:00)
[2018-11-29] MEDS ORDERED: GLUCOSE GEL 15 GRAM TUBE PO PRN ×2 (08:00)
[2018-11-29] MEDS ORDERED: HYDROmorphONE 0.5 MG/0.5 ML SYG IV STA (08:00)
[2018-11-29] MEDS ORDERED: DEXTROSE 50% 50 ML SYRINGE IV PRN ×2 (08:00)
[2018-11-29] MEDS: DEXTROSE 5%-0.45% NACL 1,000 ML IV SCH ×3 (09:12→18:55)
[2018-11-29] MEDS: INSULIN ASPART [NOVOLOG] 3 ML PEN SC SCH ×4 (09:15→21:41)
[2018-11-29] MEDS ORDERED: HYDROmorphONE 0.5 MG/0.5 ML SYG IV PRN (09:30)
[2018-11-29] MEDS ORDERED: hydrALAzine 20 MG INJ IV PRN (09:30)
[2018-11-29 10:30] VITALS: BP 115/56; PULSE 84; RESP 18
[2018-11-29] MEDS ORDERED: IOHEXOL 300MG/ML 150 ML BTL ONE (13:10)
[2018-11-29 16:25] VITALS: BP 113/64; PULSE 72; RESP 19
[2018-11-29 19:29] VITALS: BP 111/60; PULSE 75; RESP 18
[2018-11-30] MEDS: INSULIN ASPART [NOVOLOG] 3 ML PEN SC SCH ×5 (01:00→17:00)
[2018-11-30 01:43] VITALS: BP 116/58; PULSE 64; RESP 20
[2018-11-30] MEDS: ACCU-CHEK XX SCH (02:00)
[2018-11-30] MEDS: DEXTROSE 5%-0.45% NACL 1,000 ML IV SCH (05:49)
[2018-11-30] MEDS ORDERED: PANTOPRAZOLE 40 MG INJ IV SCH (06:00)
[2018-11-30 08:20] VITALS: BP 151/66; PULSE 62; RESP 20
[2018-11-30 15:28] VITALS: BP 133/65; PULSE 75; RESP 20
[2018-11-30 20:16] VITALS: BP 154/68; PULSE 52; RESP 16
[2018-11-30] MEDS: Insulin NOVOLOG SS MILD Algorithm (SS with meals and bedtime) SC SCH (21:00)
[2018-11-30] MEDS ORDERED: INSULIN ASPART [NOVOLOG] 3 ML PEN SC SCH (21:00)
[2018-11-30] MEDS: FAMOTIDINE 20 MG INJ IV SCH (21:16)
[2018-12-01] MEDS: ACCU-CHEK XX SCH (02:00)
[2018-12-01] MEDS ORDERED: ACCUCHECK AT 2AM (Patients on SS coverage) XX SCH (02:00)
[2018-12-01 02:05] VITALS: BP 132/64; PULSE 56; RESP 18
[2018-12-01 08:03] VITALS: BP 132/56; PULSE 47; RESP 18
[2018-12-01] MEDS: Insulin NOVOLOG SS MILD Algorithm (SS with meals and bedtime) SC SCH ×3 (08:30→17:25)
[2018-12-01] MEDS: FAMOTIDINE 20 MG INJ IV SCH (08:30)
[2018-12-01] MEDS ORDERED: FLUOXETINE 20 MG CAP PO SCH (13:00)
[2018-12-01 16:02] VITALS: BP 132/60; PULSE 61; RESP 18
[2018-12-01] MEDS ORDERED: FAMOTIDINE 20 MG TAB PO SCH (21:00)
[2018-12-01] MEDS ORDERED: INSULIN DETEMIR [LEVEMIR] 3ML CART SC SCH (21:00)
[2018-12-01] MEDS ORDERED: traZODone 50 MG TAB PO SCH (21:00)
[2018-12-01] MEDS ORDERED: glipiZIDE 10 MG TAB PO SCH (21:00)
[2018-12-01] MEDS ORDERED: INSULIN GLARGINE [LANTus] (100 UNITS/ML) SYG SC SCH (21:00)
[2018-12-01] MEDS ORDERED: ATORVASTATIN 10 MG TAB PO SCH (21:00)
[2018-12-02] MEDS ORDERED: NIFEdipine (XL) 30 MG TAB PO SCH (09:00)
[2018-12-02] MEDS ORDERED: CHOLESTYRAMINE 4 GM PACKET PO SCH (09:00)
[2018-12-02] MEDS ORDERED: OXYBUTYNIN (XL) 5 MG TAB PO SCH (09:00)
== END 2018-12-01 19:15 | disposition home or self-care (01) | DRG 390 ==
LOC: E/R 03:26 → MS1 04:33
PROVIDERS: ADMIT Internal Medicine; ATTEND Internal Medicine
DX: K56.609 Unspecified intestinal obstruction, unspecified as to partial versus complete obstruction (principal); E11.9 Type 2 diabetes mellitus without complications; E78.5 Hyperlipidemia, unspecified; I10 Essential (primary) hypertension; K82.8 Other specified diseases of gallbladder; Z85.46 Personal history of malignant neoplasm of prostate; Z90.79 Acquired absence of other genital organ(s); Z92.3 Personal history of irradiation; Z79.4 Long term (current) use of insulin
CPT/HCPCS: 36415; 71045; 74176; 74250; 80048; 80053; 81003; 82962; 83690; 83735; 84100; 85025; 85610; 85730; 96374; 96375; C9113; J0360; J1170; J1815; J2270; J2405; J7040; J7042; Q9967